=== PATIENT | female | born 1980 | race Caucasian/White ===

== ENCOUNTER 2017-07-17 18:11 | Emergency (ER) | payer MEDICAID ==
[2017-07-17] MEDS ORDERED: HYDROCODONE/APAP 7.5/325 MG TAB ONE (18:48)
--- NOTE | 2017-07-17 19:29 | RAD REPORT ---
EXAM DESCRIPTION: RAD - Ankle Left 3 View -07/17/2017 6:48 pm CLINICAL HISTORY: Left ankle pain FINDINGS: Plate and screws affix a subacute fibular fracture. The fracture has not yet healed. No dislocation is seen
--- NOTE | 2017-07-17 19:33 | RAD REPORT ---
EXAM DESCRIPTION: RAD - Foot Left 3 View - 07/17/2017 6:48 pm CLINICAL HISTORY: Left Foot pain FINDINGS: No fracture or dislocation is seen involving the left foot
--- NOTE | 2017-07-17 19:36 | ER ---
Nurse's Notes [facility] Name: Yuly Julien Age: 36 yrs Sex: Female : 1980 Arrival Date: 07/17/2017 Time: 18:12 Bed 28 Private MD: Diagnosis: Sprain of ankle Presentation: 07/17 18:17 Presenting complaint: Patient states: I had sx on my left ankle May 29 and today la1 I twisted my ankle and felt a pop and since then I have not been able to bare weight at all. Transition of care: patient was not received from another setting of care. Onset of symptoms was July 17, 2017. Care prior to arrival: None. 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 - Social history:: Smoking status: Patient/guardian denies using tobacco. Screenin:07 Abuse screen: Denies threats or abuse. Denies injuries from another. Nutritional lk1 screening: No deficits noted. Tuberculosis screening: No symptoms or risk factors identified. Fall Risk Total Velázquez Fall Scale indicates High Risk Score (45 or more points). Fall prevention measures have been instituted. Side Rails Up X 2 Placed Close to Nursing Station Frequent Obs/Assessments Occuring Family Present and informed to notify staff if the need to leave the bedside As available patient and family educated on Fall Prevention Program and Strategies. Assessment: 19:00 General: Appears uncomfortable, Behavior is calm, cooperative, appropriate for age. lk1 Pain: Complains of pain in left lateral ankle Pain currently is 8 out of 10 on a pain scale. Musculoskeletal: Circulation, motion, and sensation intact. Capillary refill is brisk, Swelling present in left lateral ankle. Vital Signs: 18:18 BP 106 / 71; Pulse 68; Resp 19; Temp 97.0(TE); Pulse Ox 100% on R/A; Weight 117.93 kg; la1 Height 5 ft. 10 in. (177.80 cm); 19:45 BP 104 / 68; Pulse 72; Resp 18; Pulse Ox 100% ; Pain 6/10; lk1 18:18 Body Mass Index 37.31 (117.93 kg, 177.80 cm) ak1 ED Course: 18:12 Patient arrived in ED. as 18:17 Triage completed. la1 18:18 Angelique Kirkpatrick NP is PHCP. rh1 18:18 Davon Lo MD is Attending Physician. 1 18:18 Arm band placed on right wrist. la1 18:27 Samira Gonsalves, RN is Primary Nurse. lexus 18:41 X-ray completed. Portable x-ray completed in exam room. Patient tolerated procedure kc2 well. 19:36 Tarun Manjarrez MD is Referral Physician. 1 20:09 Patient has correct armband on for positive identification. Bed in low position. Call lk1 light in reach. Side rails up X 1. Adult w/ patient. 20:09 No provider procedures requiring assistance completed. Patient did not have IV access lk1 during this emergency room visit. Administered Medications: 18:31 Drug: [place] (7.5 mg-325 mg) 1 tabs Route: PO; tw2 19:20 Follow up: Response: No adverse reaction; Pain is decreased lk1 Outcome: 19:36 Discharge ordered by MD. [facility] 20:10 Discharged to home via wheelchair, with family. lk1 20:10 Condition: good 20:10 Discharge instructions given to patient, significant other, Instructed on discharge instructions, follow up and referral plans. medication usage, safety practices, Demonstrated understanding of instructions, follow-up care, medications. 20:13 Patient left the ED. lk1 Signatures: Samira Gonsalves, Nikki Hope RN, Lee RN RN ak1 Angelique Kirkpatrick, CARL LEGAL SERVICES MANAGER 1 Madelaine Tejada RN RN lk1 Kala Garcia RN RN tw2 Roxanna Marquez kc2
--- NOTE | 2017-07-17 19:36 | EDPHYS ---
Physician Documentation [facility] Name: Yuly Julien Age: 36 yrs Sex: Female : 1980 Arrival Date: 07/17/2017 Time: 18:12 Bed 28 Private MD: ED Physician Davon Lo HPI: 07/17 18:19 This 36 yrs old Female presents to ER via Wheelchair with complaints of Ankle rh1 Injury. 18:19 The patient presents with pain, that is acute, swelling, tenderness. The complaints rh1 affect the left ankle. Onset: The symptoms/episode began/occurred just prior to arrival. Context: The problem was sustained at home, resulted from a mis-step by the patient, twisting The patient is unable to bear weight. The patient is not able to ambulate. Associated signs and symptoms: Pertinent positives: swelling, Pertinent negatives: fever, numbness, tingling, vomiting, weakness. Modifying factors: The symptoms are alleviated by nothing, the symptoms are aggravated by weight bearing, movement. Severity of symptoms: At their worst the symptoms were moderate, in the emergency department the symptoms are unchanged. The patient has not experienced similar symptoms in the past. The patient has not recently seen a physician. Pt. reports she was standing doing laundry at home, and stepped wrong in boot, and heard pop at left ankle, and has been unable to bear weight. Surgery at left distal fibula 218. Denies any paresthesias.. 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 - Social history:: Smoking status: Patient/guardian denies using tobacco. ROS: 18:19 Constitutional: Negative for fever, chills rh1 18:19 MS/extremity: Positive for decreased range of motion, pain, swelling, tenderness, Negative for deformity, paresthesias. 18:19 Skin: Negative for abscesses, cellulitis. 18:19 Neuro: Negative for numbness, tingling, weakness. 18:19 All other systems are negative. Exam: 18:19 Constitutional: This is a well developed, well nourished patient who is awake, alert, rh1 and in no acute distress. Head/Face: Normocephalic, atraumatic. Neck: Trachea midline, and no cervical lymphadenopathy. Supple, full range of motion without nuchal rigidity. No Meningismus. Cardiovascular: Regular rate and rhythm with a normal S1 and S2. No gallops, murmurs, or rubs. No JVD. No pulse deficits. Respiratory: Lungs have equal breath sounds bilaterally, clear to auscultation. No rales, rhonchi or wheezes noted. No increased work of breathing. Abdomen/GI: Soft, non-tender, with normal bowel sounds. No distension. No guarding or rebound. No evidence of tenderness throughout. Back: No spinal tenderness. No costovertebral tenderness. Full range of motion. Skin: Warm, dry with normal turgor. Normal color with no rashes, no lesions, and no evidence of cellulitis. 18:19 Musculoskeletal/extremity: Extremities: grossly normal except: noted in the left lateral ankle: pain, swelling, tenderness, with well healed surgical incision, There is no evidence of deformity, erythema, ROM: full active range of motion, in the right arm, left arm, right leg, left hip and left knee, limited active range of motion, in the left lateral ankle, limited passive range of motion, in the left lateral ankle, limited active range of motion due to pain, in the left lateral ankle, limited passive range of motion due to pain, in the left lateral ankle, Pulses: noted to be 2+ in the right posterior tibial artery, right dorsalis pedis artery, left posterior tibial artery and left dorsalis pedis artery, Perfusion: the extremity is pink, warm, with brisk capillary refill, toes at left foot, Sensation intact. 18:19 Neuro: Orientation: is normal, to person, place \T\ time. Mentation: is normal, lucid, able to follow commands, Motor: is normal, moves all fours, Sensation: is normal, no obvious gross deficits, numbness, is not appreciated, tingling, is not appreciated. Vital Signs: 18:18 BP 106 / 71; Pulse 68; Resp 19; Temp 97.0(TE); Pulse Ox 100% on R/A; Weight 117.93 kg; la1 Height 5 ft. 10 in. (177.80 cm); 19:45 BP 104 / 68; Pulse 72; Resp 18; Pulse Ox 100% ; Pain 6/10; lk1 18:18 Body Mass Index 37.31 (117.93 kg, 177.80 cm) la1 MDM: 18:19 Patient medically screened. rh1 19:35 Data reviewed: vital signs, nurses notes, radiologic studies, plain films, and as a rh1 result, I will discharge patient. Data interpreted: Pulse oximetry: on room air is 100 %. Interpretation: normal. Counseling: I had a detailed discussion with the patient and/or guardian regarding: the historical points, exam findings, and any diagnostic results supporting the discharge/admit diagnosis, radiology results, the need for outpatient follow up, a orthopedic surgeon, to return to the emergency department if symptoms worsen or persist or if there are any questions or concerns that arise at home. 07/17 18:26 Order name: Ankle Left 3 View XRAY 1 07/17 18:26 Order name: Foot Left 3 View XRAY [facility] 07/17 19:30 Order name: RAD; Complete Time: 19:35 EDMS 07/17 19:34 Order name: RAD; Complete Time: 19:35 EDMS Administered Medications: 18:31 Drug: [place] (7.5 mg-325 mg) 1 tabs Route: PO; tw2 19:20 Follow up: Response: No adverse reaction; Pain is decreased lk1 Disposition: 07/17/17 19:36 Discharged to Home. Impression: Sprain of ankle. - Condition is Stable. - Discharge Instructions: Ankle Sprain, Cast or Splint Care, Crutch Use. - Medication Reconciliation Form, Thank You Letter, Antibiotic Education, Prescription Opioid Use form. - Follow up: Tarun Manjarrez MD; When: 1 - 2 days; Reason: Recheck today's complaints, Continuance of care, Re-evaluation by your physician. Follow up: Emergency Department; When: As needed; Reason: Fever > 102 F, If symptoms return, Trouble breathing, Worsening of condition. - Problem is new. - Symptoms have improved. Addendum: 07/21/2017 14:33 Co-signature as Attending Physician, Davon Lo MD. r n Signatures: Dispatcher [employer] EDMS Davon Lo MD MD rn Attema, Lee, RN RN la1 Angelique Kirkpatrick NP PROJECT DEVELOPMENT ENGINEER 1 Madelaine Tejada, RN RN lk1 Kala Garcia, RN RN tw2
[2017-07-17 20:23] VITALS: TEMP 97; O2SAT 100
[2017-07-17 20:25] VITALS: BP 104/68
== END 2017-07-17 20:13 | disposition home or self-care (01) ==
LOC: ER 18:11
DX: S93.402A Sprain of unspecified ligament of left ankle, initial encounter (principal); X50.1XXA Overexertion from prolonged static or awkward postures, initial encounter; Y93.89 Activity, other specified; Y92.009 Unspecified place in unspecified non-institutional (private) residence as the place of occurrence of the external cause; I10 Essential (primary) hypertension; Z88.0 Allergy status to penicillin; Z88.5 Allergy status to narcotic agent; Z91.048 Other nonmedicinal substance allergy status
CPT/HCPCS: 99283

== ENCOUNTER 2018-03-31 19:29 | Emergency (ER) | payer MEDICAID ==
--- OUTSIDE RECORDS SUMMARY | 2018-03-31 19:32 | XMS REPORT ---
:1980 Author Organization [employer] Care Team Providers Name Role Phone Tarun Manjarrez Provider Role Unavailable Allergies, Adverse Reactions, Alerts Substance Reaction Event Type penicillin Info Not Available Drug Allergy MORPHINE Info Not Available Drug Allergy Problems Problem Type Condition Code Onset Dates Condition Status Assessment Pain in left ankle and joints of M25.572 Active left foot Assessment Closed displaced fracture of S82.62XG Active lateral malleolus of left fibula with delayed healing Medications Medication Code System Code Instructions Start Date End Date Status Dosage Clindamycin HCl NDC 0 Active not defined Results No Known Results Summary Purpose eClinical[employer] Submission
[2018-03-31] MEDS ORDERED: IBUPROFEN 400 MG TAB ONE (20:37)
--- NOTE | 2018-03-31 21:02 | RAD REPORT ---
EXAM DESCRIPTION: RAD - Knee Left 3 View - 03/31/2018 8:46 pm CLINICAL HISTORY: Left knee pain FINDINGS: No fracture or dislocation is seen.
--- NOTE | 2018-03-31 21:30 | RAD REPORT ---
EXAM DESCRIPTION: RAD - Ankle Left 3 View -03/31/2018 8:46 pm CLINICAL HISTORY: Left ankle pain status post injury FINDINGS: Plate and screws affix a fibular fracture. The fracture does not appear completely healed . No acute fracture or dislocation seen
--- NOTE | 2018-03-31 21:32 | EDPHYS ---
Physician Documentation [facility] Name: Yuly Julien Age: 37 yrs Sex: Female : 1980 Arrival Date: 03/31/2018 Time: 19:31 Bed 17 Private MD: ED Physician Hadley Flores HPI: 03/31 20:10 This 37 yrs old Female presents to ER via Wheelchair with complaints of Ankle cp Injury, Ankle Swelling. 20:10 The patient presents with an injury, pain, that is acute, swelling, tenderness. The cp complaints affect the left ankle. Onset: The symptoms/episode began/occurred just prior to arrival. Context: The problem was sustained outdoors, resulted from a mis-step by the patient, The mechanism of injury involved inversion of the affected ankle. The patient can partially bear weight on the affected extremity. the patient is able to ambulate, with moderate difficulty. Associated signs and symptoms: Pertinent positives: left knee pain, Pertinent negatives: calf tenderness. Modifying factors: the symptoms are aggravated by weight bearing, movement. 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 - Social history:: Smoking status: Patient uses tobacco products, denies chronic smoking, but will smoke occasionally. - Ebola Screening: : Patient negative for fever greater than or equal to 101.5 degrees Fahrenheit, and additional compatible Ebola Virus Disease symptoms Patient denies exposure to infectious person Patient denies travel to an Ebola-affected area in the 21 days before illness onset No symptoms or risks identified at this time. ROS: 20:15 Constitutional: Negative for fever, poor PO intake. cp 20:15 Eyes: Negative for injury, pain, redness, and discharge. cp 20:15 ENT: Negative for drainage from ear(s), ear pain, sore throat, difficulty swallowing, difficulty handling secretions. 20:15 Cardiovascular: Negative for chest pain. 20:15 Respiratory: Negative for cough, shortness of breath, wheezing. 20:15 Abdomen/GI: Negative for abdominal pain. 20:15 MS/extremity: Positive for pain, paresthesias, tenderness, of the left ankle, Negative for deformity. 20:15 Skin: Negative for cellulitis, rash. 20:15 All other systems are negative. Exam: 20:25 Constitutional: The patient appears in no acute distress, alert, awake, well developed, cp well nourished. 20:25 Head/Face: Normocephalic, atraumatic. cp 20:25 Eyes: Periorbital structures: appear normal, Conjunctiva: normal, no exudate, no injection, Lids and lashes: appear normal, bilaterally. 20:25 ENT: External ear(s): are unremarkable, Nose: is normal, Mouth: is normal, Posterior pharynx: is normal, airway is patent. 20:25 Chest/axilla: Inspection: normal. 20:25 Cardiovascular: Rate: normal, Rhythm: regular. 20:25 Respiratory: the patient does not display signs of respiratory distress, Respirations: normal, no use of accessory muscles, no retractions, no splinting, no tachypnea. 20:25 Abdomen/GI: Inspection: abdomen appears normal. 20:25 Musculoskeletal/extremity: Extremities: grossly normal except: noted in the left lateral ankle: swelling, tenderness, There is no evidence of deformity, noted in the left knee: pain, tenderness, no evidence of decreased ROM, deformity. 20:25 Skin: cellulitis, is not appreciated, no rash present. Vital Signs: 19:47 BP 116 / 58; Pulse 90; Resp 19; Temp 97.8; Pulse Ox 98% on R/A; Weight 73.03 kg; Height aj 5 ft. 10 in. (177.80 cm); 21:21 BP 108 / 59; Pulse 73; Resp 16; Pulse Ox 100% on R/A; aa1 19:47 Body Mass Index 23.10 (73.03 kg, 177.80 cm) Procedures: 21:35 Splinting: Splint applied to left ankle using Air Cast, applied by nurse. Examined by cp me, post splint application: neurovascular intact, Patient tolerated well. MDM: 19:51 Patient medically screened. cp 20:30 Differential diagnosis: fracture, sprain, dislocation. cp 21:30 Data reviewed: vital signs, nurses notes, radiologic studies, plain films, and as a cp result, I will discharge patient. 21:30 Test interpretation: by ED physician or midlevel provider: plain radiologic studies. cp Counseling: I had a detailed discussion with the patient and/or guardian regarding: the historical points, exam findings, and any diagnostic results supporting the discharge/admit diagnosis, radiology results, the need for outpatient follow up, a orthopedic surgeon, to return to the emergency department if symptoms worsen or persist or if there are any questions or concerns that arise at home. 03/31 20:07 Order name: XRAY Knee LEFT 3 view cp 03/31 20:07 Order name: XRAY Ankle LEFT 3 view cp 03/31 21:03 Order name: RAD; Complete Time: 21:18 EDMD 03/31 21:18 Interpretation: Report reviewed. 03/31 21:32 Order name: RAD EDMD 03/31 21:19 Order name: Aircast Ankle Splint; Complete Time: 21:39 cp Administered Medications: 20:32 Not Given (Patient Refused): Ibuprofen 800 mg PO once aa1 Disposition: 04/01 19:13 Co-signature as Attending Physician, Hadley Flores MD. Disposition: 03/31/18 21:31 Discharged to Home. Impression: Sprain of ankle - Left, Pain in knee. - Condition is Stable. - Discharge Instructions: Ankle Sprain, Knee Pain. - Prescriptions for Tramadol 50 mg Oral Tablet - take 1 tablet by ORAL route every 8 hours as needed. no driving while taking medication; 15 tablet. - Work release form, Medication Reconciliation Form, Thank You Letter, Antibiotic Education, Prescription Opioid Use form. - Follow up: Private Physician; When: 2 - 3 days; Reason: Recheck today's complaints. - Problem is new. - Symptoms have improved. Signatures: Dispatcher [employer] EDMD Ashtyn Benjamin RN RN aa1 Samira Gonsalves RN RN aj Page, Corey, PA PA cp Starr, Gregory, MD MD Corrections: (The following items were deleted from the chart) 03/31 20:28 20:07 Urine Dipstick-Ancillary ordered. cp cp :28 20:07 Urine Test ordered. cp cp 21:39 21:19 Crutches ordered. cp aa1 21:40 21:31 03/31/2018 21:31 Discharged to Home. Impression: Sprain of ankle - Left; Pain in aa1 knee. Condition is Stable. Forms are Medication Reconciliation Form, Thank You Letter, Antibiotic Education, Prescription Opioid Use. Follow up: Private Physician; When: 2 - 3 days; Reason: Recheck today's complaints. Problem is new. Symptoms have improved. cp
--- NOTE | 2018-03-31 21:32 | ER ---
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 Transition of care: patient was not received from another setting of care. Onset of symptoms was March 31, 2018. Risk Assessment: Do you want to hurt yourself or someone else? Patient reports no desire to harm self or others. Initial Sepsis Screen: Does the patient meet any 2 criteria? No. Patient's initial sepsis screen is negative. Does the patient have a suspected source of infection? No. Patient's initial sepsis screen is negative. Care prior to arrival: None. 19:45 Method Of Arrival: Wheelchair aj 19:45 Acuity: GRACIA 3 aj Triage Assessment: 19:47 General: Appears in no apparent distress. uncomfortable, Behavior is calm, cooperative, aj appropriate for age. Pain: Complains of pain in left lateral ankle. Neuro: Level of Consciousness is awake, alert, obeys commands, Oriented to person, place, time, situation, Appropriate for age. Respiratory: Airway is patent Respiratory effort is even, unlabored, Respiratory pattern is regular, symmetrical. Derm: Skin is intact, is healthy with good turgor, Skin is pink, warm \\T\\ dry. normal. Musculoskeletal: Reports pain in left lateral ankle. 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 - Social history:: Smoking status: Patient uses tobacco products, denies chronic smoking, but will smoke occasionally. - Ebola Screening: : Patient negative for fever greater than or equal to 101.5 degrees Fahrenheit, and additional compatible Ebola Virus Disease symptoms Patient denies exposure to infectious person Patient denies travel to an Ebola-affected area in the 21 days before illness onset No symptoms or risks identified at this time. Screenin:55 Abuse screen: Denies threats or abuse. Denies injuries from another. Nutritional aa1 screening: No deficits noted. Tuberculosis screening: No symptoms or risk factors identified. Fall Risk Gait- Impaired (20 pts.). Assessment: 19:55 General: Appears in no apparent distress. comfortable, Behavior is calm, cooperative, aa1 appropriate for age. Pain: Complains of pain in left lateral ankle Is continuous, Aggravated by weight bearing. Neuro: Level of Consciousness is awake, alert, obeys commands, Oriented to person, place, time, situation, Moves all extremities. Respiratory: Airway is patent Respiratory effort is even, unlabored, Respiratory pattern is regular, symmetrical. GI: No signs and/or symptoms were reported involving the gastrointestinal system. : No signs and/or symptoms were reported regarding the genitourinary system. EENT: No signs and/or symptoms were reported regarding the EENT system. Derm: Skin is intact, is healthy with good turgor, Skin is pink, warm \\T\\ dry. Musculoskeletal: Circulation, motion, and sensation intact. Capillary refill < 3 seconds, Range of motion: limited in left ankle Swelling present in left lateral ankle. 20:43 Reassessment: Patient appears in no apparent distress at this time. Patient and/or aa1 family updated on plan of care and expected duration. Pain level reassessed. Patient is alert, oriented x 3, equal unlabored respirations, skin warm/dry/pink. Awaiting x-ray results. 21:21 Reassessment: Patient appears in no apparent distress at this time. Patient and/or aa1 family updated on plan of care and expected duration. Pain level reassessed. Patient is alert, oriented x 3, equal unlabored respirations, skin warm/dry/pink. Awaiting d/c orders from provider. 21:35 Reassessment: Patient appears in no apparent distress at this time. Patient is alert, aa1 oriented x 3, equal unlabored respirations, skin warm/dry/pink. Discussed d/c \\T\\ f/u instructions with pt; denies questions or concerns at this time. Vital Signs: 19:47 BP 116 / 58; Pulse 90; Resp 19; Temp 97.8; Pulse Ox 98% on R/A; Weight 73.03 kg; Height aj 5 ft. 10 in. (177.80 cm); 21:21 BP 108 / 59; Pulse 73; Resp 16; Pulse Ox 100% on R/A; aa1 19:47 Body Mass Index 23.10 (73.03 kg, 177.80 cm) ED Course: 19:31 Patient arrived in ED. al2 19:46 Triage completed. aj 19:47 Arm band placed on left wrist. Patient placed in an exam room. aj 19:49 Sanya Roberson PA is PHCP. cp 19:49 Hadley Flores MD is Attending Physician. cp 19:55 Patient has correct armband on for positive identification. Bed in low position. Call aa1 light in reach. 20:26 Ashtyn Benjamin, RN is Primary Nurse. aa1 21:35 No provider procedures requiring assistance completed. Patient did not have IV access aa1 during this emergency room visit. Air stirrup applied to left ankle. Administered Medications: 20:32 Not Given (Patient Refused): Ibuprofen 800 mg PO once aa1 Outcome: 21:31 Discharge ordered by MD. cp 21:35 Discharged to home via wheelchair, with family. aa1 21:35 Condition: good 21:35 Discharge instructions given to patient, Instructed on discharge instructions, follow up and referral plans. medication usage, Demonstrated understanding of instructions, follow-up care, medications. 21:40 Patient left the ED. aa1 Signatures: Ashtyn Benjamin, RN RN aa1 Samira Gonsalves RN RN Sanya Fernando PA PA cp Love, Angelica al2
[2018-03-31 22:38] VITALS: TEMP 97.8
[2018-03-31 22:40] VITALS: BP 108/59; O2SAT 100
== END 2018-03-31 21:40 | disposition home or self-care (01) ==
LOC: ER 19:29
DX: S93.402A Sprain of unspecified ligament of left ankle, initial encounter (principal); M25.562 Pain in left knee; X58.XXXA Exposure to other specified factors, initial encounter; Z72.0 Tobacco use; F32.9 Major depressive disorder, single episode, unspecified; Z79.899 Other long term (current) drug therapy
CPT/HCPCS: 99283

== ENCOUNTER 2019-01-08 14:05 | Emergency (ER) | payer MEDICAID ==
--- OUTSIDE RECORDS SUMMARY | 2019-01-08 14:07 | XMS REPORT ---
:1980 [facility] Address [address] [place] [address] Care Team Providers Name Role Phone Unavailable Unavailable Unavailable Payers Payer Name Policy Type Policy Number Effective Date Expiration Date Problems This patient has no known problems. Allergies, Adverse Reactions, Alerts Allergy Name Allergy Status Severity Reaction(s) Onset Inactive Treating Comments Type Date Date Clinician Penicillins DA Active CA 2018-04 00:00:0 0 morphine DA Active CA 2018-04 00:00:0 0 adhesive tape DA Active CA 2018-04 00:00:0 0 Penicillins DA Active CA 2018-04 00:00:0 0 morphine DA Active CA 2018-04 00:00:0 0 adhesive tape DA Active CA 2018-04 00:00:0 0 Medications This patient has no known medications. Results Test Description Test Time Test Comments Text Results Atomic Results Result Comments - [facility] UNI/LTD 2018-07-14 18:38:00 Patient Name: CAPRICE ARGUETA Unit No: [id number] EXAMS: CPT CODE: [id number] [facility] UNI/LTD 45431 FINDINGS: Left lower extremity grayscale and Doppler venous ultrasound demonstrates normal flow and luminal compressibility without evidence of intraluminal thrombus. IMPRESSION: No evidence of DVT within deep venous structures of the left lower extremity. at 1838 Reported and signed by: Eusbeio Kirkpatrick M.D. CC: Juarez Stoll MD Technologist: MORGAN ANDERSEN RDMS, RVT Transcribed D/ (1838) [facility] NAME: CAPRICE ARGUETA [address] [facility] PHYS: JMEVONNE Juarez Caban : 1980 AGE: 37 SEX: F [place] [address] LOC: Y.RAD PHONE #: [phone] EXAM DATE: 07/14/2018 STATUS: REG CLI FAX #: [phone] RAD #: D/C DT PAGE 1 Signed Report Patient Name: CAPRICE ARGUETA Unit No: [id number] EXAMS: CPT CODE: [id number] [facility] UNI/LTD 19238 <Continued> Orig Print D/T: S: 07/14/2018 (184) [facility] NAME: CAPRICE ARGUETA [address] [facility] PHYS: Juarez Bowen : 1980 AGE: 37 SEX: F [place] [address] LOC: Y.RAD PHONE #: [phone] EXAM DATE: 07/14/2018 STATUS: REG CLI FAX #: [phone] RAD #: D/C DT PAGE 2 Signed Report
[2019-01-08] MEDS ORDERED: HYDROCODONE/APAP 10/325 TAB ONE (15:02)
[2019-01-08] MEDS ORDERED: ONDANSETRON 4 MG (ODT) TAB ONE (15:02)
--- NOTE | 2019-01-08 16:08 | RAD REPORT ---
EXAM DESCRIPTION: RAD - Elbow Left 2 View - 01/08/2019 3:55 pm CLINICAL HISTORY: Left elbow pain status injury FINDINGS: Limited two view series obtained No fracture or dislocation seen
--- NOTE | 2019-01-08 16:08 | RAD REPORT ---
EXAM DESCRIPTION: RAD - Forearm Left - 01/08/2019 3:54 pm CLINICAL HISTORY: Left forearm pain status post injury FINDINGS: No fracture is seen
--- NOTE | 2019-01-08 16:11 | RAD REPORT ---
EXAM DESCRIPTION: RAD -Hand Left 3 View - 01/08/2019 3:55 pm CLINICAL HISTORY: Left hand pain status post injury FINDINGS: No fracture or dislocation is seen.
--- NOTE | 2019-01-08 17:00 | ER ---
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 Transition of care: patient was not received from another setting of care. Onset of symptoms was January 08, 2019. Risk Assessment: Do you want to hurt yourself or someone else? Patient reports no desire to harm self or others. Initial Sepsis Screen: Does the patient meet any 2 criteria? No. Patient's initial sepsis screen is negative. Does the patient have a suspected source of infection? No. Patient's initial sepsis screen is negative. Care prior to arrival: None. 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 - Social history:: Smoking status: Patient/guardian denies using tobacco. - Ebola Screening: : Patient negative for fever greater than or equal to 101.5 degrees Fahrenheit, and additional compatible Ebola Virus Disease symptoms Patient denies exposure to infectious person Patient denies travel to an Ebola-affected area in the 21 days before illness onset No symptoms or risks identified at this time. Screenin:41 Abuse screen: Denies threats or abuse. Denies injuries from another. Nutritional sv screening: No deficits noted. Tuberculosis screening: No symptoms or risk factors identified. Fall Risk None identified. Assessment: 14:39 General: Appears in no apparent distress. uncomfortable, well groomed, well developed, sv Behavior is calm, cooperative, appropriate for age. Pain: Complains of pain in left arm Pain currently is 7 out of 10 on a pain scale. Quality of pain is described as tender, throbbing, Is continuous, Aggravated by repositioning, Noted to be grimacing, guarding. Neuro: Level of Consciousness is awake, alert, obeys commands, Oriented to person, place, time, situation, Moves all extremities. Full function Gait is steady, Reports numbness in left middle finger, left ring finger and left little finger. Cardiovascular: Capillary refill < 3 seconds is brisk in bilateral fingers Patient's skin is warm and dry. Pulses are 3+ in right radial artery and left radial artery. Respiratory: Respiratory effort is even, unlabored, Respiratory pattern is regular, symmetrical. Derm: Skin is pink, warm \T\ dry. Musculoskeletal: Range of motion: limited in left wrist Swelling present in left arm. 15:21 Reassessment: Patient appears in no apparent distress at this time. Patient and/or sv family updated on plan of care and expected duration. Pain level reassessed. Patient is alert, oriented x 3, equal unlabored respirations, skin warm/dry/pink. GI: Patient currently denies nausea. 15:37 Reassessment: Xray at the bedside. sv 17:19 Reassessment: Patient appears in no apparent distress at this time. Patient and/or sv family updated on plan of care and expected duration. Pain level reassessed. Patient is alert, oriented x 3, equal unlabored respirations, skin warm/dry/pink. Vital Signs: 14:22 BP 132 / 90; Pulse 89; Resp 17; Temp 98.4; Pulse Ox 98% on R/A; Pain 7/10; sg ED Course: 14:07 Patient arrived in ED. rg4 14:22 Triage completed. sg 14:22 Arm band placed on. sg 14:34 Cheli Moya, BRETT is Primary Nurse. sv 14:41 Patient has correct armband on for positive identification. Bed in low position. Call sv light in reach. Adult w/ patient. Door closed. Warm blanket given. Pillow given. Head of bed elevated. Elevated left arm. 14:43 Chriss Pereyra PA is PHCP. [facility] 14:43 Justyn Berry MD is Attending Physician. [facility] 15:41 Awaiting radiology results. sv 15:41 X-ray(s) taken. sv 15:54 Hand Left 3 View XRAY In Process Unspecified. EDMS 15:54 Forearm Left XRAY In Process Unspecified. EDMS 15:54 Elbow Left 2 View XRAY In Process Unspecified. EDMS 16:52 Celestino wrap to left elbow and left wrist Orthoglass splint: Sugar tong splint applied on jp3 left arm. Sling applied to left arm. 16:57 Thierry Spann MD is Referral Physician. jmm 17:19 No provider procedures requiring assistance completed. Patient did not have IV access sv during this emergency room visit. Administered Medications: 15:02 Drug: Zofran 4 mg Route: PO; sv 15:21 Follow up: Response: No adverse reaction; Nausea is decreased sv 15:21 Drug: [place] 10 mg-325 mg 1 tabs Route: PO; sv 16:15 Follow up: Response: No adverse reaction; Pain is decreased sv Outcome: 16:58 Discharge ordered by MD. jmm 17:19 Discharged to home ambulatory, with family. sv 17:19 Condition: stable 17:19 Discharge instructions given to patient, Instructed on discharge instructions, follow up and referral plans. splint care Demonstrated understanding of instructions, follow-up care, splint care. 17:20 Patient left the ED. sv Signatures: Dispatcher [employer] Cheli Whitfield RN RN sv Gay, Steven, RN RBETT Chriss Pereyra PA PA jmm Garcia, Rubi rg4 Erik Barry jp3 Corrections: (The following items were deleted from the chart) 15:32 14:39 Neuro: Level of Consciousness is awake, alert, obeys commands, Oriented to sv person, place, time, situation, Moves all extremities. Full function Gait is steady, sv
--- NOTE | 2019-01-08 17:01 | EDPHYS ---
Physician Documentation [facility] Name: Yuly Julien Age: 38 yrs Sex: Female : 1980 Arrival Date: 01/08/2019 Time: 14:07 Bed 7 Private MD: ED Physician Justyn Berry HPI: 01/08 14:56 This 38 yrs old Female presents to ER via Ambulatory with complaints of Arm jmm Injury. 14:56 The patient or guardian complains of injury, pain, that is acute. Onset: The jmm symptoms/episode began/occurred acutely, just prior to arrival. This is a 38 year old female with a history of depression, hlp, htn that presents to the ED with complaints of left forearm pain after a horse kicked her. This occurred when attempting to push her daughter out of the way. patient denies other injury. . 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 - Social history:: Smoking status: Patient/guardian denies using tobacco. - Ebola Screening: : Patient negative for fever greater than or equal to 101.5 degrees Fahrenheit, and additional compatible Ebola Virus Disease symptoms Patient denies exposure to infectious person Patient denies travel to an Ebola-affected area in the 21 days before illness onset No symptoms or risks identified at this time. ROS: 14:56 Constitutional: Negative for fever, chills, and weight loss, Cardiovascular: Negative jmm for chest pain, palpitations, and edema, Respiratory: Negative for shortness of breath, cough, wheezing, and pleuritic chest pain. 14:56 MS/extremity: Positive for injury or acute deformity. 14:56 All other systems are negative. Exam: 14:56 Constitutional: This is a well developed, well nourished patient who is awake, alert, jmm and in no acute distress. Head/Face: atraumatic. Eyes: EOMI, no conjunctival erythema appreciated ENT: Moist Mucus Membranes Neck: Trachea midline, Supple Chest/axilla: Normal chest wall appearance and motion. Cardiovascular: Regular rate and rhythm. No edema appreciated Respiratory: Normal respirations, no respiratory distress appreciated Abdomen/GI: Non distended, soft Skin: General appearance color normal 14:56 Musculoskeletal/extremity: ROM: intact in all extremities, left forearm diffusely ttp, left hand is tender on the ulnar side, no obvious deformity is appreciated, < 2 sec distal cap refill. . 14:56 Skin: Appearance: Color: normal in color. 14:56 Neuro: Orientation: is normal, Mentation: is normal, Memory: is normal. 14:56 Psych: Behavior/mood is pleasant, cooperative. Vital Signs: 14:22 BP 132 / 90; Pulse 89; Resp 17; Temp 98.4; Pulse Ox 98% on R/A; Pain 7/10; sg Procedures: 16:55 Splinting: Splint applied to left arm using sling, sugar tong. applied by tech. tianna Examined by me, post splint application: neurovascular intact, 2+ distal pulses palpable, brisk capillary refill noted, Patient tolerated well. MDM: 14:56 Patient medically screened. tianna 16:55 Data reviewed: vital signs, nurses notes. Counseling: I had a detailed discussion with tianna the patient and/or guardian regarding: the historical points, exam findings, and any diagnostic results supporting the discharge/admit diagnosis, radiology results, the need for outpatient follow up, to return to the emergency department if symptoms worsen or persist or if there are any questions or concerns that arise at home. ED course: Imaging studies negative. Patient advised to follow up with ortho for reevaluation. Patient is otherwise given strict return precautions. Patient understood and agrees with the plan of care. . 01/08 14:39 Order name: Hand Left 3 View XRAY; Complete Time: 16:26 sv 01/08 14:39 Order name: Forearm Left XRAY; Complete Time: 16:13 sv 01/08 14:39 Order name: Elbow Left 2 View XRAY; Complete Time: 16:13 sv 01/08 16:23 Order name: Sugar Tong Forearm Splint; Complete Time: 16:53 [facility] 01/08 16:23 Order name: Sling; Complete Time: 16:53 [facility] Administered Medications: 15:02 Drug: Zofran 4 mg Route: PO; sv 15:21 Follow up: Response: No adverse reaction; Nausea is decreased sv 15:21 Drug: [place] 10 mg-325 mg 1 tabs Route: PO; sv 16:15 Follow up: Response: No adverse reaction; Pain is decreased sv Disposition: 01/08/19 16:58 Discharged to Home. Impression: Contusion of left forearm. - Condition is Stable. - Discharge Instructions: Contusion, Hand Contusion. - Prescriptions for Ibuprofen 800 mg Oral Tablet - take 1 tablet by ORAL route every 8 hours As needed take with food; 30 tablet. - Work release form, Medication Reconciliation Form, Thank You Letter, Antibiotic Education, Prescription Opioid Use form. - Follow up: Thierry Spann MD; When: 2 - 3 days; Reason: Recheck today's complaints, Continuance of care, Re-evaluation by your physician. Addendum: 01/10/2019 09:54 Co-signature as Attending Physician, Justyn Berry MD I agree with the assessment and k dr plan of care. Signatures: Dispatcher [employer] EDCheli Gold RN RN sv Gay, Steven, RN RN Justyn Berry MD MD [facility] Chriss Pereyra PA PA jmm Corrections: (The following items were deleted from the chart) 01/08 17:20 16:58 01/08/2019 16:58 Discharged to Home. Impression: Contusion of left forearm. sv Condition is Stable. Forms are Medication Reconciliation Form, Thank You Letter, Antibiotic Education, Prescription Opioid Use. Follow up: Thierry Spann; When: 2 - 3 days; Reason: Recheck today's complaints, Continuance of care, Re-evaluation by your physician. tianna
[2019-01-08 19:35] VITALS: BP 132/90; TEMP 98.4; O2SAT 98
== END 2019-01-08 17:20 | disposition home or self-care (01) ==
LOC: ER 14:05
DX: S50.12XA Contusion of left forearm, initial encounter (principal); W55.12XA Struck by horse, initial encounter; Y93.9 Activity, unspecified; Y92.9 Unspecified place or not applicable; I10 Essential (primary) hypertension; Z88.0 Allergy status to penicillin; Z88.5 Allergy status to narcotic agent; Z91.048 Other nonmedicinal substance allergy status
CPT/HCPCS: 99284

== ENCOUNTER 2019-01-12 08:51 | Day surgery (SDC) | payer MEDICAID ==
--- NOTE | 2019-01-11 15:00 | RAD REPORT ---
EXAM DESCRIPTION: Jazz Gunderson (2 Views)01/11/2019 2:49 pm CLINICAL HISTORY: Preop for umbilical hernia repair COMPARISON: 2018 FINDINGS: The lungs appear clear of acute infiltrate. The heart is normal size IMPRESSION: No acute abnormalities displayed
[2019-01-11 15:59] LABS: Absolute Lymphocytes (CBC) 3.2 K/uL (0.7-4.9); Basophils % 1.3 % (0-1.3); Hematocrit 40.5 % (36.0-45.0); Lymphocytes % 35.2 % (15.3-44.8); MPV 9.9 fL (7.6-11.3); RBC Red Blood Cell Count 4.67 M/uL (3.86-4.86)
[2019-01-11 16:06] LABS: Potassium 3.5 mmol/L (3.5-5.1)
[2019-01-12] MEDS: Ringers Lactate 1,000 ML IV ONE (08:51)
--- OUTSIDE RECORDS SUMMARY | 2019-01-12 08:58 | XMS REPORT ---
:1980 [facility] Address [address] [place] [address] Care Team Providers Name Role Phone Unavailable Unavailable Unavailable Payers Payer Name Policy Type Policy Number Effective Date Expiration Date Problems This patient has no known problems. Allergies, Adverse Reactions, Alerts Allergy Name Allergy Status Severity Reaction(s) Onset Inactive Treating Comments Type Date Date Clinician Penicillins DA Active OK 2018-04 00:00:0 0 morphine DA Active OK 2018-04 00:00:0 0 adhesive tape DA Active OK 2018-04 00:00:0 0 Penicillins DA Active OK 2018-04 00:00:0 0 morphine DA Active OK 2018-04 00:00:0 0 adhesive tape DA Active OK 2018-04 00:00:0 0 Medications This patient has no known medications. Results Test Description Test Time Test Comments Text Results Atomic Results Result Comments - DUP VEIN UNI/LTD 2018-07-14 18:38:00 Patient Name: CAPRICE ARGUETA Unit No: [id number] EXAMS: CPT CODE: [id number] DUP VEIN UNI/LTD 26652 FINDINGS: Left lower extremity grayscale and Doppler venous ultrasound demonstrates normal flow and luminal compressibility without evidence of intraluminal thrombus. IMPRESSION: No evidence of DVT within deep venous structures of the left lower extremity. at 1838 Reported and signed by: Eusebio Kirkpatrick M.D. CC: Juarez Stoll MD Technologist: MORGAN ANDERSEN RDMS, RVT Transcribed D/ (1838) [facility] NAME: CAPRICE ARGUETA [address] [facility] PHYS: JMEVONNE Juarez Caban : 1980 AGE: 37 SEX: F [place] [address] LOC: Y.RAD PHONE #: [phone] EXAM DATE: 07/14/2018 STATUS: REG CLI FAX #: [phone] RAD #: D/C DT PAGE 1 Signed Report Patient Name: CAPRICE ARGUETA Unit No: [id number] EXAMS: CPT CODE: [id number] [facility] UNI/LTD 08353 <Continued> Orig Print D/T: S: 07/14/2018 (184) [facility] NAME: CAPRICE ARGUETA [address] [facility] PHYS: Juarez Bowen : 1980 AGE: 37 SEX: F [place] [address] LOC: Y.RAD PHONE #: [phone] EXAM DATE: 07/14/2018 STATUS: REG CLI FAX #: [phone] RAD #: D/C DT PAGE 2 Signed Report
[2019-01-12] MEDS: CEFAZOLIN/SWI 1gm 1 GM/10 ML SYR ONE ×2 (09:48→10:20)
[2019-01-12] MEDS ORDERED: PROPOFOL 200 MG/20 ML VIAL IV ONE (09:50)
[2019-01-12] MEDS ORDERED: MIDAZOLAM HCL 2 MG/2 ML INJ ONE (09:50)
[2019-01-12] MEDS ORDERED: ROCURONIUM 50 MG/5 ML VIAL IV ONE (09:51)
[2019-01-12] MEDS ORDERED: LIDOCAINE 1% MPF 5 ML VIAL ONE (09:51)
[2019-01-12] MEDS ORDERED: FENTANYL CITR 100 MCG/2 ML ONE ×2 (09:51→10:24)
[2019-01-12] MEDS ORDERED: NEOSTIGMINE 1 MG/ML -10 ML VIAL ONE (11:02)
[2019-01-12] MEDS ORDERED: ONDANSETRON 4 MG/2 ML VIAL ONE ×2 (11:02→12:35)
[2019-01-12] MEDS ORDERED: KETOROLAC 30 MG/ML INJ ONE (11:02)
[2019-01-12] MEDS ORDERED: GLYCOPYRROLATE 0.2 MG/ML SYR ONE (11:02)
[2019-01-12] MEDS ORDERED: MEPERIDINE HCL 25 MG/0.5 ML ONE (11:14)
--- NOTE | 2019-01-12 11:30 | EKG ---
Test Date: 2019-01-11 Test Time: 14:38:50 Animal Services Officer: RIRI MEASUREMENT RESULTS: Intervals: Rate: 62 SD: 166 QRSD: 100 QT: 436 QTc: 442 [place]: P: 32 SD: 166 QRS: 64 T: 52 INTERPRETIVE STATEMENTS: Normal sinus rhythm with sinus arrhythmia Normal ECG Compared to ECG 07/06/2015 17:01:15 Ventricular premature complex(es) no longer present Electronically Signed On 01-12-19 11:29:44 CDT by Alexander Arnold
[2019-01-12] MEDS ORDERED: PROMETHAZINE 25 MG/ML VIAL ONE (11:33)
[2019-01-12] MEDS: HYDROMORPHONE HCL 2 MG/ML inj ONE ×3 (11:34→12:03)
[2019-01-12] MEDS ORDERED: HYDROCODONE/APAP 7.5/325 MG TAB ONE (13:10)
[2019-01-12 14:10] VITALS: BP 115/65; TEMP 98; O2SAT 97
--- NOTE | 2019-01-12 22:54 | OP ---
Date of Procedure: 01/12/2019 Surgeon: Abelardo Monson MD Sales Product Manager: LIZBET Andujar Preoperative Diagnosis: Recurrent ventral hernia. Postoperative Diagnosis: Recurrent ventral hernia. Procedure: Laparoscopic repair of recurrent ventral hernia. Estimated Blood Loss: Minimal. Specimen: Hernia sac. Findings: As above. Anesthesia: General. Complications: None. Disposition: Patient tolerated the procedure in stable condition, taken to Recovery in good general condition. Procedure In Detail: The patient was brought to the OR and placed in supine position. General anest hesia was begun. The patient was prepped and draped in usual sterile fashion. Marcaine 0.5% was inf iltrated locally. A 15 blade was used to make a 1 cm left upper quadrant incision. Subcutaneous tis aaliyah was divided. The fascia was identified and divided. A #1 Vicryl stay suture was placed. Perito priya cavity was entered with sharp and blunt dissection, 12 mm trocar was placed into the peritoneal cavity under direct vision. Pneumoperitoneum was established. A 5 mm trocar was placed in the left lower quadrant. Laparoscopy revealed incarcerated omentum slightly into the hernia sac which was jus t below the umbilicus slightly to the left. All omental adhesions were taken down with ligature and then approximately a 3.5 cm defect remained. Then, a 4 cm infraumbilical midline incision was made. Subcutaneous tissue was divided. Hernia sac was identified and dissected from surrounding tissue do wn to the good fascial edges, excised and sent to Pathology. Then primary closure of the hernia defe ct was done including the fascia together. Patient did have a previous mesh there, however, it was a Ventralex mesh and is common part on each side and have to see that common part in the middle. So, the 3 cm defect of the fascia was reapproximated using #1 PDS and pneumoperitoneum was re-established with an oval-shaped Bard mesh system medium in size 15 x 10 cm was placed into the peritoneal cavity and deployed in the standard fashion. Good coverage all the way around the hernia defect was accomp lished with at least 3 cm border in each directions. Then, AbsorbaTack was used to secure the mesh t o the peritoneal surface. The balloon component was removed intact. No evidence of bleeding or leighton l injury was appreciated. Subsequently, all trocars were removed under direct vision. Stay sutures were tied to each other to reapproximate the fascial defect. Subcutaneous wounds were irrigated. Bl eeding was controlled with cautery. A 3-0 chromic was used to approximate the subcutaneous tissue an d angely were used to close the skin. Sterile dressing was applied. The patient was awakened and t aken to Recovery in good general condition. Discharge Note: Patient will go to day surgery and home when stable. Disposition: Home. Condition: Stable. Discharge Instructions: Resume home medications and diet. Activity as tolerated. No heavy lifting. Remove outer dressing in 2 days. Shower. Keep wound clean and dry. Follow up in my office in 1 w [place]. Call for appointment. Tylenol No.3 one tablet p.o. q.4 p.r.n. pain. Abdominal binder as order ed. Incentive spirometry as ordered. /MODL Voice ID: [id number] Report ID: [id number]
== END 2019-01-12 13:43 | disposition home or self-care (01) ==
LOC: OR 08:51
PROVIDERS: ATTEND Surgery
PROC: 0WUF4JZ Supplement Abdominal Wall with Synthetic Substitute, Percutaneous Endoscopic Approach (ICD-10-PCS; principal; 2019-01-12 10:15)
DX: K43.2 Incisional hernia without obstruction or gangrene (principal); K21.9 Gastro-esophageal reflux disease without esophagitis; F32.9 Major depressive disorder, single episode, unspecified; F17.210 Nicotine dependence, cigarettes, uncomplicated; Z88.0 Allergy status to penicillin; Z88.6 Allergy status to analgesic agent
CPT/HCPCS: 93005; 85025; 80048; 36415; 88302; 71046; 49656; J2704; J2710; J2550; J2250; J1170; J3010 ×2; J2175; J0690; J2405 ×2

== ENCOUNTER 2020-01-06 13:47 | Emergency (ER) | payer MEDICAID ==
[2020-01-06] MEDS ORDERED: NA CHLORIDE 0.9% 2,000 ML ONE (15:27)
[2020-01-06] MEDS ORDERED: KETOROLAC 30 MG/ML INJ ONE (15:27)
[2020-01-06] MEDS ORDERED: METOCLOPRAMIDE 10 MG/2mL INJ ONE (15:27)
[2020-01-06 15:28] LABS: Absolute Lymphocytes (CBC) 2.5 K/uL (0.7-4.9); Basophils % 1.2 % (0-1.3); Hematocrit 39.1 % (36.0-45.0); Lymphocytes % 31.1 % (15.3-44.8); MPV 9.1 fL (7.6-11.3); RBC Red Blood Cell Count 4.71 M/uL (3.86-4.86)
[2020-01-06 15:45] LABS: ALT/SGPT 21 U/L (12-78); AST/SGOT 15 U/L (15-37); Albumin 3.6 g/dL (3.4-5.0); Alkaline Phosphatase 96 U/L (45-117); BUN Blood Urea Nitrogen 11 mg/dL (7-18); Bicarbonate 21 mmol/L (21-32); Bilirubin Direct 0.1 mg/dL (0-0.2); Bilirubin Total 0.4 mg/dL (0.2-1.0); Glucose Level 96 mg/dL (74-106); Lipase 96 U/L (73-393); Potassium 3.7 mmol/L (3.5-5.1); Protein, Total 6.8 g/dL (6.4-8.2); Sodium Level 144 mmol/L (136-145)
--- NOTE | 2020-01-06 16:02 | ER ---
Nurse's Notes [facility] Name: Yuly Julien Age: 39 yrs Sex: Female : 1980 Arrival Date: 01/06/2020 Time: 13:49 Bed 15 Private MD: Diagnosis: Dehydration Presentation: 01/05 13:52 Chief complaint: Patient states: "I passed out yesterday while at work. I work at the [employer] and it was really hot. they said when I got home from work yesterday I was really confused. today my head is hurting and I'm hurting everywhere and I threw up again.". Coronavirus screen: At this time, the client does not indicate any symptoms associated with coronavirus-19. Ebola Screen: Patient negative for fever greater than or equal to 101.5 degrees Fahrenheit, and additional compatible Ebola Virus Disease symptoms. Initial Sepsis Screen: Does the patient meet any 2 criteria? No. Patient's initial sepsis screen is negative. Does the patient have a suspected source of infection? No. Patient's initial sepsis screen is negative. Risk Assessment: Do you want to hurt yourself or someone else? Patient reports no desire to harm self or others. Onset of symptoms was January 06, 2020. 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 - Social history:: Smoking status: Patient reports the use of cigarette tobacco products, denies chronic smoking, but will smoke occasionally. - Family history:: not pertinent. Screenin:28 Abuse screen: Denies threats or abuse. Nutritional screening: No deficits noted. ll1 Tuberculosis screening: No symptoms or risk factors identified. Fall Risk IV access (20 points). Gait- Weak (10 pts.). Total Velázquez Fall Scale indicates Low Risk Score (25-44 pts). Fall prevention measures have been instituted. Side Rails Up X 2 Frequent Obs/Assesments occuring As available Patient and Family Educated on Fall Prevention Program and strategies. Assessment: 15:26 General: Appears uncomfortable, Behavior is calm, cooperative. Pain: Complains of pain ll1 in head Pain currently is 9 out of 10 on a pain scale. Quality of pain is described as aching, Pain began 1 day ago. Is intermittent, episodic. 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 Full function Gait is steady, Speech is normal, Facial symmetry appears normal, Pupils are PERRLA, Reports dizziness, since yesterday headache in entire a syncopal episode. Cardiovascular: No deficits noted. Respiratory: No deficits noted. GI: Abdomen is flat, Bowel sounds present X 4 quads. Abd is soft and non tender X 4 quads. Reports intolerance of fluids, intolerance of food, nausea, vomiting. 16:30 Reassessment: Patient and/or family updated on plan of care and expected duration. Pain ll1 level reassessed. Patient is alert, oriented x 3, equal unlabored respirations, skin warm/dry/pink. No further N/V. Feels better. Vital Signs: 13:58 BP 109 / 79; Pulse 75; Resp 17 S; Temp 97.8(TE); Pulse Ox 99% on R/A; Weight 116.57 kg jd3 (R); Height 5 ft. 10 in. (177.80 cm) (R); Pain 0/10; 15:15 BP 98 / 59; Pulse 60; Resp 16; Pulse Ox 98% ; ll1 16:29 BP 102 / 62; Pulse 59; Resp 17; Pulse Ox 100% ; Pain 2/10; ll1 13:58 Body Mass Index 36.88 (116.57 kg, 177.80 cm) jd3 ED Course: 13:49 Patient arrived in ED. ds1 13:55 Triage completed. jd3 13:59 Arm band placed on. jd3 14:28 Fartun Faria, RN is Primary Nurse. ll1 14:31 Ansley Estevez MD is Attending Physician. ma2 15:16 Bed in low position. Call light in reach. Side rails up X 1. Verbal reassurance given. jp3 Pulse ox on. NIBP on. 15:16 Initial lab(s) drawn, by me, sent to lab. Inserted saline lock: 20 gauge in right jp3 antecubital area, using aseptic technique. Blood collected. Patient maintains SpO2 saturation greater than 95% on room air. 16:38 No provider procedures requiring assistance completed. IV discontinued, intact, ll1 bleeding controlled, No redness/swelling at site. Pressure dressing applied. Administered Medications: 15:25 Drug: NS 0.9% 2000 ml Route: IV; Rate: 1 bolus; Site: right antecubital; 1 16:39 Follow up: Response: No adverse reaction; RASS: Alert and Calm (0); IV Status: ll1 Completed infusion; IV Intake: 1700ml 15:26 Drug: Reglan 10 mg Route: IVP; Site: right antecubital; 1 16:29 Follow up: Response: No adverse reaction; RASS: Alert and Calm (0) ll1 16:29 Follow up: Response: No adverse reaction; RASS: Alert and Calm (0) 1 15:26 Drug: TORadol 30 mg Route: IVP; Site: right antecubital; ll1 16:39 Follow up: Response: No adverse reaction; RASS: Alert and Calm (0) 1 Intake: 16:39 IV: 1700ml; Total: 1700ml. 1 Outcome: 16:01 Discharge ordered by . ks2 16:40 Patient left the ED. 1 Signatures: Tarah Krueger ds1 Niko De Los Santos RN RN jd3 Ansley Estevez MD MD ma2 Erik Barry jp3 Fartun Faria, BRETT RN ll1
--- NOTE | 2020-01-06 16:02 | EDPHYS ---
Physician Documentation [facility] Name: Yuly Julien Age: 39 yrs Sex: Female : 1980 Arrival Date: 01/06/2020 Time: 13:49 Bed 15 Private MD: ED Physician Ansley Estevez HPI: 01/05 14:54 This 39 yrs old Female presents to ER via Ambulatory with complaints of ma2 Possible heat stroke. 14:54 Onset: The symptoms/episode began/occurred gradually, 1 day(s) ago. Severity of ma2 symptoms: At their worst the symptoms were mild in the emergency department the symptoms are unchanged. The patient has not experienced similar symptoms in the past. 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 - Social history:: Smoking status: Patient reports the use of cigarette tobacco products, denies chronic smoking, but will smoke occasionally. - Family history:: not pertinent. ROS: 14:54 Constitutional: Negative for fever, chills, and weight loss. ma2 14:54 All other systems are negative. Exam: 14:54 Constitutional: This is a well developed, well nourished patient who is awake, alert, ma2 and in no acute distress. Head/Face: Normocephalic, atraumatic. Eyes: Pupils equal round and reactive to light, extra-ocular motions intact. Lids and lashes normal. Conjunctiva and sclera are non-icteric and not injected. Cornea within normal limits. Periorbital areas with no swelling, redness, or edema. ENT: Nares patent. No nasal discharge, no septal abnormalities noted. Tympanic membranes are normal and external auditory canals are clear. Oropharynx with no redness, swelling, or masses, exudates, or evidence of obstruction, uvula midline. Mucous membranes moist. Neck: Trachea midline, no thyromegaly or masses palpated, and no cervical lymphadenopathy. Supple, full range of motion without nuchal rigidity, or vertebral point tenderness. No Meningismus. Chest/axilla: Normal chest wall appearance and motion. Nontender with no deformity. No lesions are appreciated. Cardiovascular: Regular rate and rhythm with a normal S1 and S2. No gallops, murmurs, or rubs. Normal PMI, no JVD. No pulse deficits. Respiratory: Lungs have equal breath sounds bilaterally, clear to auscultation and percussion. No rales, rhonchi or wheezes noted. No increased work of breathing, no retractions or nasal flaring. Abdomen/GI: Soft, non-tender, with normal bowel sounds. No distension or tympany. No guarding or rebound. No evidence of tenderness throughout. Skin: Warm, dry with normal turgor. Normal color with no rashes, no lesions, and no evidence of cellulitis. MS/ Extremity: Pulses equal, no cyanosis. Neurovascular intact. Full, normal range of motion. Neuro: Awake and alert, GCS 15, oriented to person, place, time, and situation. Cranial nerves II-XII grossly intact. Motor strength 5/5 in all extremities. Sensory grossly intact. Cerebellar exam normal. Normal gait. Vital Signs: 13:58 BP 109 / 79; Pulse 75; Resp 17 S; Temp 97.8(TE); Pulse Ox 99% on R/A; Weight 116.57 kg jd3 (R); Height 5 ft. 10 in. (177.80 cm) (R); Pain 0/10; 15:15 BP 98 / 59; Pulse 60; Resp 16; Pulse Ox 98% ; ll1 16:29 BP 102 / 62; Pulse 59; Resp 17; Pulse Ox 100% ; Pain 2/10; ll1 13:58 Body Mass Index 36.88 (116.57 kg, 177.80 cm) jd3 MDM: 14:31 Patient medically screened. ma2 14:54 Differential Diagnosis ua, dehydratoin rhabdomyolisis . ma2 16:00 Data reviewed: vital signs, nurses notes. Counseling: I had a detailed discussion with ma2 the patient and/or guardian regarding: the historical points, exam findings, and any diagnostic results supporting the discharge/admit diagnosis, the presence of at least one elevated blood pressure reading (>120/80) during this emergency department visit, the need for outpatient follow up. Response to treatment: the patient's symptoms have markedly improved after treatment. 01/05 14:43 Order name: Basic Metabolic Panel; Complete Time: 15:59 01/05 14:43 Order name: CBC with Diff; Complete Time: 15:59 01/05 14:43 Order name: Hepatic Function; Complete Time: 15:59 01/05 14:43 Order name: Lipase; Complete Time: 15:59 01/05 14:48 Order name: CK; Complete Time: 15:59 01/05 14:43 Order name: IV Saline Lock; Complete Time: 15:16 01/05 14:43 Order name: Labs collected and sent; Complete Time: 15:16 ma Administered Medications: 15:25 Drug: NS 0.9% 2000 ml Route: IV; Rate: 1 bolus; Site: right antecubital; 1 16:39 Follow up: Response: No adverse reaction; RASS: Alert and Calm (0); IV Status: ll1 Completed infusion; IV Intake: 1700ml 15:26 Drug: Reglan 10 mg Route: IVP; Site: right antecubital; 1 16:29 Follow up: Response: No adverse reaction; RASS: Alert and Calm (0) ll1 16:29 Follow up: Response: No adverse reaction; RASS: Alert and Calm (0) ll1 15:26 Drug: TORadol 30 mg Route: IVP; Site: right antecubital; 1 16:39 Follow up: Response: No adverse reaction; RASS: Alert and Calm (0) ll1 Disposition: 01/06/20 16:01 Discharged to Home. Impression: Dehydration. - Condition is Stable. - Discharge Instructions: Dehydration, Adult. - Prescriptions for Zofran 4 mg Oral Tablet - take 1 tablet by ORAL route every 12 hours As needed; 20 tablet. - Medication Reconciliation Form, Thank You Letter, Antibiotic Education, Prescription Opioid Use, Work release form form. - Follow up: Private Physician; When: Tomorrow; Reason: Continuance of care. Signatures: Dispatcher [employer] EDNiko Matias, RN RN jd3 Ansley Estevez MD MD ma2 Fartun Faria RN RN ll1 Corrections: (The following items were deleted from the chart) 16:39 14:43 Urine Dipstick-Ancillary ordered. herminio ll1 16:40 16:01 01/06/2020 16:01 Discharged to Home. Impression: Dehydration. Condition is ll1 Stable. Forms are Medication Reconciliation Form, Thank You Letter, Antibiotic Education, Prescription Opioid Use. Follow up: Private Physician; When: Tomorrow; Reason: Continuance of care. ma2
[2020-01-06 17:07] VITALS: TEMP 97.8
[2020-01-06 17:10] VITALS: BP 102/62; O2SAT 100
== END 2020-01-06 16:40 | disposition home or self-care (01) ==
LOC: ER 13:47
DX: E86.0 Dehydration (principal); I10 Essential (primary) hypertension; F32.9 Major depressive disorder, single episode, unspecified; F17.210 Nicotine dependence, cigarettes, uncomplicated; Z88.0 Allergy status to penicillin; Z88.5 Allergy status to narcotic agent; Z88.6 Allergy status to analgesic agent; Z91.048 Other nonmedicinal substance allergy status
CPT/HCPCS: 96361; 85025; 80048; 36415; 82550; 80076; 83690; 96375; 96374; 99284; J2765; J7030

== ENCOUNTER 2022-01-06 18:27 | Emergency (ER) | payer SELFPAY ==
--- OUTSIDE RECORDS SUMMARY | 2022-01-06 18:31 | XMS REPORT | Continuity of Care Document ---
:1980 Author Organization [facility] t Address [address] [place] [address] Care Team Providers Name Role Phone MISSAEL CORONEL Primary Care Physician Unavailable Juarez Stoll Attending Clinician Unavailable WILTON AVILES Attending Clinician Unavailable YVETTE BUCK Attending Clinician Unavailable RADIOLOGY Attending Clinician Unavailable PEARL HEADLEY Attending Clinician Unavailable Pearl Headley MD Attending Clinician Radiology Attending Clinician Unavailable JAROD JOVEL Attending Clinician Unavailable TC GEIGER Attending Clinician Unavailable Tc Silver Attending Clinician CRISTINA HASSAN Attending Clinician Unavailable JOHN BRENNER Attending Clinician Unavailable MISSAEL CORONEL Admitting Clinician Unavailable PEARL HEADLEY Admitting Clinician Unavailable Payers Payer Name Policy Type Policy Number Effective Date Expiration Date [facility] [id number] 2014 MEDICAID 00:00:00 Problems Condition Condition Condition Status Onset Resolution Last Treating Co mments Source Name Details Category Date Date Treatment Clinician Date Pleuritic Pleuritic Disease Active Uni vers chest pain chest pain 01-23 it y of 00:00: [address] Branch Obesity Obesity Disease Active 2020-0 Univers (BMI (BMI 9-29 ity of 30-39.9) 30-39.9) 00:00: Medical Branch Pain in Pain in Diagnosis Active Commo n left ankle left ankle Sp anjum and joints and joints - [facility] of left of left [facility] foot foot [facility] Closed Closed Diagnosis Active Common displaced displaced Spir it fracture fracture - [facility] of lateral of lateral St malleolus malleolus Luke s of left of left [facility] fibula fibula [facility] with with delayed delayed healing healing Allergies, Adverse Reactions, Alerts Allergy Allergy Status Severity Reaction(s) Onset Inactive Treating Comm ents Source Name Type Date Date Clinician Hydrocod Propensi Active Other - See 0 Hydrocod o Univers one ty to comments 01-09 ne/acetam ity o f adverse 00:00: inophen [place] reaction 00 (Tylenol Medica l s 3) Branch HYDROCOD DRUG Active Other-Cmnt 0 Univ ers ONE INGREDI 01-09 ity of 00:00: Medical Branch Penicill DA Active MO 2019-0 [facility] ins 05-24 [facility] 00:[facility]: [facility] [place] morphine DA Active MO 2019-0 [facility] 05-24 Woman[facility] 00:00: [facility] [place] adhesive DA Active MO 2019-0 [facility] tape 05-24 Woman's 00:00: [facility] 00 [facility] [place] Penicill DA Active MO SOB, RASHES 2019-0 [facility] ins 05-24 Woman's 00:00: [facility]osp[facility] 00 [facility] [place] morphine DA Active MO SEVERE 2019-0 [facility] MUSCLES 05-24 Woman's CRAMPS 00:00: Hospita 00 l of [place] adhesive DA Active MO TEARS SKIN, 0 [facility] tape RASHES, 05-24 Woman's BRUISING 00:00: Hospita 00 [facility] [place] Penicill DA Active MO 2019-0 [facility] ins 05-27 00:00: Orthope 00 dic Hospita l morphine DA Active MO 2018-0 [facility] 05-27 00:00: Orthope 00 dic Hospita l adhesive DA Active MO 2018-0 [facility] tape 05-27 00:00: Orthope 00 dic Hospita l Penicill DA Active MO SOB, RASHES 2018-0 [facility] ins 05-27 00:00: Orthope 00 dic Hospita l morphine DA Active MO SEVERE 2018-0 [facility] MUSCLES 05-27 [place] CRAMPS 00:00: Orthope 00 dic Hospita l adhesive DA Active MO TEARS SKIN, 2018- [facility] tape RASHES, 05-27 [place] BRUISING 00:00: Orthope 00 dic Hospita l Penicill DA Active MO 2018- [facility] ins -18 [place] 00:00: Orthope 00 dic Hospita l morphine DA Active MO 2018-0 [facility] -18 [place] 00:00: Orthope 00 dic Hospita l adhesive DA Active MO 2018- [facility] tape 05-14 [place] 00:00: Orthope 00 dic Hospita l Morphine Drug Active Other - See Severe Uni vers Allergy comments 5-31 abdominal ity of 00:00: cramping [place] 00 Other Medical reaction( Branch s): Other (see comments) Severe abdominal cramping MORPHINE DRUG Active Other-Cmnt Univ ers INGREDI 5-31 ity of 00:00: [place] 00 Medical Branch PENICILL Drug Active Hives Univers INS Class 5-31 ity of 00:00: [place] 00 Medical Branch Penicill Propensi Active Hives Univer s ins ty to 5-31 ity of adverse 00:00: [place] reaction 00 Medical s Branch Penicill Propensi Active Hives 0 Univer s ins ty to 5-31 ity of adverse 00:00: [place] reaction 00 Medical s Branch penicill Adverse Active Info Not Commo n in Reaction Available [facility] MORPHINE Adverse Active Info Not Commo n Reaction Available [facility] Social History Social Habit Start Date Stop Date Quantity Comments Source History [facility] o f Alcohol Comment [place] [facility] ical Branch Exposure to 2021-08-23 2021-09-02 Not sure [facility] SARS-CoV-2 00:00:00 20:00:00 [place] [facility] (event) Branch Alcohol intake 2021-09-02 2021-09-02 Lifetime University of 00:00:00 00:00:00 non-drinker [place] [facility] (finding) Branch Tobacco use and 2020-01-24 2020-01-24 Current user Univers ity of exposure 00:00:00 00:00:00 [place] [facility] History [facility] 2020-01-24 2020-01-24 1 University o f Alcohol Frequency 00:00:00 00:00:00 [facility] edical Branch History [facility] 2020-01-24 2020-01-24 99 University o f Alcohol Std 00:00:00 00:00:00 [place] [facility] Drinks Branch History SDOH 2020-01-24 2020-01-24 1 [place] o f Alcohol Binge 00:00:00 00:00:00 [place] [facility] al Branch Sex [birth year] At [birth year] Universit y of 00:00:00 00:00:00 [facility] Smoking Status Start Date Stop Date Source Current some day smoker 2020-01-24 00:00:00 [facility] Medications Ordered Filled Start Stop Current Ordering Indication Dosage Frequency Signature Comments Components Source Medication Medication Date Date Medication? Clinician (SIG) Name Name hydroCHLORO Yes [id number] 25mg Take 1 Univers thiazide 25 5-09 tablet by ity of mg tablet 00:00: mouth [place] 00 every Medical morning. Branch benzonatate Yes [id number] 100mg Take 1 Univers 100 mg 5-09 capsule by ity of capsule 00:00: mouth 3 [place] 00 (three) Medical times Branch daily as needed for Cough. montelukast Yes [id number] 10mg Take 1 Univers 10 mg 5-09 tablet by ity of tablet 00:00: mouth [place] 00 every 24 Medical (twenty-fo Branch ur) hours as needed (symptoms) . sodium 2021- No [id number] 200uCi 200 Uni vers iodide I 07-11 microcurie ity of 123 oral 16:45: 16:32 , Oral, [place] capsule 200 00 :00 ONCE, 1 Medic al microcurie dose, On Branc h Corazon 07/11/21 at 1145, Routine triamcinolo 2020- No [id number] 40mg Univers ne 12-24 ity of acetonide 15:30: 14:22 [place] (KENALOG) 00 :00 Medical injection Branch 40 mg triamcinolo 2020- No [id number] 40mg 40 mg, Univers ne 12-24 Intramuscu ity of acetonide 15:30: 14:22 [place], ONCE, [place] (KENALOG) 00 :00 1 dose, On Medi angela injection Mon Branch 40 mg 12/24/20 at 1030, Routine DEXLANSOPRA Yes Take by Uni vers ZOLE 9-30 mouth. ity of (DEXILANT 14:05: [place] ORAL) 16 Medical Branch SERTraline 2020-0 Yes 100mg Take 100 Un jarett 100 mg 9-30 mg by ity of tablet 14:05: mouth [place] 16 daily. Medical Branch DEXLANSOPRA 2020-0 Yes Take by Uni vers ZOLE 9-30 mouth. ity of (DEXILANT 14:05: [place] ORAL) 16 Medical Branch SERTraline 2020-0 Yes 100mg Take 100 Un jarett 100 mg 9-30 mg by ity of tablet 14:05: mouth [place] 16 daily. Medical Branch DEXLANSOPRA 2020-0 Yes Take by Uni vers ZOLE 9-30 mouth. ity of (DEXILANT 14:05: [place] ORAL) 16 Medical Branch SERTraline 2020-0 Yes 100mg Take 100 Un jarett 100 mg 9-30 mg by ity of tablet 14:05: mouth [place] 16 daily. Medical Branch DEXLANSOPRA 2020-0 Yes Take by Uni vers ZOLE 9-30 mouth. ity of (DEXILANT 14:05: [place] ORAL) 16 Medical Branch SERTraline 2020-0 Yes 100mg Take 100 Un jarett 100 mg 9-30 mg by ity of tablet 14:05: mouth [place] 16 daily. Medical Branch ibuprofen 2020-0 Yes [id number] 600mg Take 1 Un jarett 600 mg 9-30 tablet by ity of tablet 00:00: mouth 4 [place] 00 (four) Medical times Branch daily with meals or snack. HYDROcodone 2020-0 Yes [id number] 1{tbl} Take 1 Un jarett -acetaminop 9-30 tablet by ity of hen 5-325 00:00: mouth [place] mg tablet 00 every 6 Medical (six) Branch hours as needed for Pain (scale 7-10) (Hold for SBP<110, DBP<60, RR<12, and/or drowsiness /sedation) . Indication s: acute pain ibuprofen 2020-0 Yes [id number] 600mg Take 1 Un jarett 600 mg 9-30 tablet by ity of tablet 00:00: mouth 4 [place] 00 (four) Medical times Branch daily with meals or snack. HYDROcodone 2020-0 Yes [id number] 1{tbl} Take 1 Un jarett -acetaminop 9-30 tablet by ity of hen 5-325 00:00: mouth [place] mg tablet 00 every 6 Medical (six) Branch hours as needed for Pain (scale 7-10) (Hold for SBP<110, DBP<60, RR<12, and/or drowsiness /sedation) . Indication s: acute pain ibuprofen 2020-0 Yes [id number] 600mg Take 1 Un jarett 600 mg 9-30 tablet by ity of tablet 00:00: mouth 4 [place] 00 (four) Medical times Branch daily with meals or snack. HYDROcodone 2020-0 Yes [id number] 1{tbl} Take 1 Un jarett -acetaminop 9-30 tablet by ity of hen 5-325 00:00: mouth [place] mg tablet 00 every 6 Medical (six) Branch hours as needed for Pain (scale 7-10) (Hold for SBP<110, DBP<60, RR<12, and/or drowsiness /sedation) . Indication s: acute pain ibuprofen 2020-0 Yes [id number] 600mg Take 1 Un jarett 600 mg 9-30 tablet by ity of tablet 00:00: mouth 4 (four) Medical times Branch daily with meals or snack. HYDROcodone 2020-0 Yes [id number] 1{tbl} Take 1 Un jarett -acetaminop 9-30 tablet by ity of hen 5-325 00:00: mouth [place] mg tablet 00 every 6 Medical (six) Branch hours as needed for Pain (scale 7-10) (Hold for SBP<110, DBP<60, RR<12, and/or drowsiness /sedation) . Indication s: acute pain benzonatate 2018-0 Yes 100mg Take 1 Uni vers 100 mg 9-28 capsule by ity of capsule 00:00: mouth (three) Medical times Branch daily as needed for Cough. benzonatate 2018-0 Yes 100mg Take 1 Uni vers 100 mg 9-28 capsule by ity of capsule 00:00: mouth 3 (three) Medical times Branch daily as needed for Cough. benzonatate 2018-0 Yes 100mg Take 1 Uni vers 100 mg 9-28 capsule by ity of capsule 00:00: mouth 3 (three) Medical times Branch daily as needed for Cough. benzonatate 2018-0 Yes 100mg Take 1 Uni vers 100 mg 9-28 capsule by ity of capsule 00:00: mouth (three) Medical times Branch daily as needed for Cough. ondansetron 2018-0 Yes 4mg Take 1 Univ ers 4 mg 1-18 tablet by ity of disintegrat 00:00: mouth [place] ing tablet 00 every 8 Medica l (eight) Branch hours as needed for Nausea and Vomiting (N/V). ondansetron 2018-0 Yes 4mg Take 1 Univ ers 4 mg 1-18 tablet by ity of disintegrat 00:00: mouth [place] ing tablet 00 every 8 Medica l (eight) Branch hours as needed for Nausea and Vomiting (N/V). ondansetron 2018-0 Yes 4mg Take 1 Univ ers 4 mg 1-18 tablet by ity of disintegrat 00:00: mouth [place] ing tablet 00 every 8 Medica l (eight) Branch hours as needed for Nausea and Vomiting (N/V). ondansetron 2018-0 Yes 4mg Take 1 Univ ers 4 mg 1-18 tablet by ity of disintegrat 00:00: mouth [place] ing tablet 00 every 8 Medica l (eight) Branch hours as needed for Nausea and Vomiting (N/V). Clindamycin Clindamycin Yes [place] not Common HCl HCl [place] defined [facility] Vital Signs Vital Name Observation Time Observation Value Comments Source Systolic blood 2021-09-03 03:57:00 132 mm[Hg[facility] Diastolic blood 2021-09-03 03:57:00 72 mm[Hg] [facility] Heart rate 2021-09-03 03:57:00 70 /min [facility] Respiratory rate 2021-09-03 03:57:00 18 /min [facility] Oxygen saturation in 2021-09-03 03:57:00 96 /min [facility] Arterial blood by [facility] Pulse oximetry Branch Body temperature 2021-09-03 01:04:00 36.39 Almita [facility] Body height 2021-09-03 01:04:[address] [facility] Body weight 2021-09-03 01:04:[address] [facility] BMI 2021-09-03 01:04:00 43.52 kg/m2 [facility] Body temperature 2020-12-20 16:31:00 36.06 Almita [facility] Body height 2020-12-20 16:31:[address] [facility] Body weight 2020-12-20 16:31:[address] [facility] BMI 2020-12-20 16:31:00 37.66 kg/m2 [facility] Procedures Procedure Date / Time Performing Clinician Source Performed COMP. METABOLIC PANEL 2021-09-03 03:53:00 Pearl Headley [facility] ([id number]) [facility] SEDIMENTATION RATE 2021-09-03 03:53:00 Kayode [facility] CBC WITH DIFF 2021-09-03 03:53:00 Headley Pearl [facility] N-TERMINAL PRO-BNP 2021-09-03 03:53:00 Pearl Headley [facility] XR CHEST 2 VW 2021-09-03 02:41:11 Pearl Headley [facility] RAPID INFLUENZA A/B 2021-09-03 01:10:[address] [facility] COVID-19 (ID NOW RAPID 2021-09-03 01:10:00 Tristan Cleaning [facility] TESTING) [facility] NOTICE OF PRIVACY 2021-09-03 00:37:22 Doctor Unassigned, No Univ [facility] PRACTICES Name [facility] CONSENT/REFUSAL FOR 2021-09-03 00:36:40 [facility], [facility] Name [facility] NM THYROID UPTAKE AND 2021-07-12 17:20:00 Requisition, Paper [facility] Encounters Start End Encounter Admission Attending Care Care Encounter Source Date/Time Date/Time Type Type Clinicians Facility Department ID 2019-06-01 [id number] 12:23:00 Juarez [id number] [place] [facility] 2022-01-14 2022-01-14 Outpatient Jameel AVILES [facility] [id number] Univers 16:00:00 16:00:[id number] [facility] 2021-10-08 2021-10-08 Outpatient R HEBER [facility] [id number] Univers 12:30:00 12:30:[id number] [facility] 2021-10-03 2021-10-03 Outpatient R RADIOLOGY [facility] [id number] Univers 11:00:00 11:00:[id number] [facility] 2021-09-18 2021-09-18 [facility] [id number] Univers 16:15:00 16:15:[id number] [facility] 2021-09-02 2021-09-03 [facility] [id number] Univers 20:15:00 00:02:00 PEARL [facility] 2021-09-02 2021-09-03 [facility] [id number] Univers 20:15:00 00:02:00 Pearl BANNERSTANLEY [id number] i [facility] [id number] [facility] [id number] [place] [id number] [place] 2021-07-12 2021-07-12 Outpatient R RADIOLOGY [facility] [id number] Univers 11:13:08 23:59:[address] [facility] 2021-07-12 2021-07-12 Hospital Radiology [facility] [id number] Univers 11:00:00 23:59:00 Encounter SPECIALTY [id number] ity of C[id number] [place] [id number] [address] 2021-07-11 2021-07-11 [facility] Radiology [facility] [id number] Univers 11:00:00 23:59:00 Encounter SPECIALTY [id number] ity of [place] [id number] [place] [id number] Ar [address] 2021-03-15 2021-03-15 [facility] [id number] Univers 12:50:00 12:50:[id number] [facility] 2021-03-15 2021-03-15 Outpatient Jameel JOVEL [facility] [id number] Univers 12:50:00 12:50:00 JAROD [facility] 2021-02-05 2021-02-05 Outpatient Jameel GEIGER [facility] [id number] Univers 11:20:00 11:20:00 TC [id number] [facility] 2021-02-05 2021-02-05 Outpatient Jameel GEIGER [facility] [id number] Univers 11:20:00 [facility]:20[facility] 2021-01-23 2021-01-23 Outpatient JUANJO [facility] [id number] Univers 11:20:00 11:20:00 TC [id number] [facility] 2021-01-23 2021-01-23 Outpatient Jameel GEIGER [facility] [id number] Univers 11:20:00 11:20:00 [facility] 2021-01-03 2021-01-03 Outpatient Jameel GEIGER [facility] [id number] Univers 11:40:00 11:40:00 TC [id number] [facility] 2021-01-03 2021-01-03 Outpatient Jameel GEIGER [facility] [id number] Univers 11:40:00 11:40:00 [facility] 2020-12-27 2020-12-27 Outpatient R [facility] [id number] Univers 14:30:00 14:30:00 [id number] [facility] 2020-12-27 2020-12-27 Outpatient Jameel GEIGER [facility] [id number] Univers 14:30:00 14:30:00 [facility] 2020-12-20 2020-12-20 Office Juanjo [facility] [id number] Univers 11:27:15 12:12:58 Visit [place]c SPECIALTY [id number] ity of CARE [id number] [facility] AT [id number] [address] 2020-12-20 2020-12-20 Outpatient Jameel GEIGER [facility] [id number] Univers 11:20:00 11:20:00 TC [id number] [facility] 2020-12-20 2020-12-20 Outpatient R JUANJO [facility] [id number] Univers 11:20:00 11:20:00 [facility] 2020-12-13 2020-12-13 Outpatient Jameel GEIGER [facility] [id number] Univers 08:40:00 08:40:00 TC [id number] [facility] 2020-12-13 2020-12-13 Outpatient R JUANJO [facility] [id number] Univers 08:40:00 08:40:[facility] 2020-12-05 2020-12-05 Outpatient R JUANJO [facility] [id number] Univers 15:35:00 15:35:00 TC [id number] [facility] 2020-12-05 2020-12-05 Outpatient Jameel GEIGER [facility] [id number] Univers 15:35:00 15:35:00 [facility] 2020-11-27 2020-11-27 Outpatient R [facility] [id number] Univers 13:15:00 13:15:00 [id number] [facility] 2020-11-27 2020-11-27 Outpatient R MO, [facility] [id number] Univers 11:30:00 11:30:00 CRISTINA [facility] 2020-11-22 2020-11-22 Outpatient R JORDIN, [facility] [id number] Univers 13:40:00 13:40:00 JOHN [facility] 2020-01-23 2020-01-23 Emergency X [facility] ERT [id number] Univers 21:09:00 21:09:00 [facility] 2019-05-24 2019-05-24 [id number] [facility] 16:03:00 16:03:00 [facility] 2017-11-20 2017-11-20 [facility] [id number] Common 08:00:00 08:00:00 [facility] Results Test Description Test Time Test Comments Results Result Comments Source N-TERMINAL PRO-BNP 2021-09-03 04:26:55 Test Item Value Reference Range Interpretation Comme nts NT-proBNP (test code = 105 pg/mL See_Comment [Aut omated message] The [id number]) system which ge nerated this result tra nsmitted reference range : <=125. The reference r pradeep was not used to int erpret this result as kristal l/abnormal. MANDY (test code = MANDY) Biotin has been reported to cause a negative bias, interpret results relative to patient's use of biotin. Lab Interpretation (test Normal code = 00105-0) [facility] [id number] 04:26:24 Test Item Value Reference Range Interpretation Comments ESR (test code = See_Comment [Automated message] [id number]) The system [employer] h generated this result transmitted ref erence range: 0 - 20 m m/HR. The reference r pradeep was not used to interpret this result as normal/abnor mal. Lab Interpretation (test Normal code = 87498-1) [facility] MET[facility]OLIC PAN[facility] ([id number])2021-09-03 04:18:53 Test Item Value Reference Range Interpretation Comments NA (test code = 139 mmol/L 135-145 7735757730) K (test code = 3.8 mmol/L 3.5-5.0 6222962134) CL (test code = 106 mmol/L 98-108 2067095258) CO2 TOTAL (test code = 22 mmol/L 23-31 L 8079829345) AGAP (test code = 2-16 4319398580) BUN (test code = 13 mg/dL 7-23 8389937923) GLUCOSE (test code = 106 mg/dL 70-110 6520956357) CREATININE (test code = 0.77 mg/dL 0.50-1.04 5387120276) TOTAL BILI (test code = 0.6 mg/dL 0.1-1.8 2460685764) CALCIUM (test code = 9.5 mg/dL 8.6-10.6 1178220201) T PROTEIN (test code = 7.2 g/dL 6.3-8.2 0588076362) ALBUMIN (test code = 4.6 g/dL 3.5-5.0 3165030791) ALK PHOS (test code = 110 U/L 34-122 4175855508) ALTv (test code = 15 U/L 5-35 1742-6) AST(SGOT) (test code = 20 U/L 13-40 2735262001) eGFR (test code = mL/min/1.73m2 7057159213) MANDY (test code = MANDY) Association of Glomerular Filtration Rate (GFR) and Staging of Kidney Disease* + --+ --+ ------+| GFR (mL/min/1.73 m2) ?| With Kidney Damage ?| ?Without Kidney Damage+ --------+ --------+ +| ?>90 ?| ?Stage one ?| ? Normal ?+ ---+ ---+ -------+| ?60-89 ?| ?Stage two ?| ? Decreased GFR ? + --+ --+ ------+| ?30-59 ?| ?Stage three ?| ? Stage three ? + --+ --+ ------+| ?15-29 ?| ?Stage four ? | ? Stage four ?+ ---+ ---+ -------+| ?<15 (or dialysis) ? ?| ?Stage five ? | ? Stage five ?+ ---+ ---+ -------+ *Each stage assumes the associated GFR level has been in effect for at least three months. ?Stages 1 to 5, with or without kidney disease, indicate chronic kidney disease. Notes: Determination of stages one and two (with eGFR >59mL/min/1.73 m2) requires estimation of kidney damage for at least three months as defined by structural or functional abnormalities of the kidney, manifested by either:Pathological abnormalities or Markers of kidney damage (including abnormalities in the composition of the blood or urine or abnormalities in imaging tests). Lab Interpretation Abnormal (test code = 99169-4) [facility] WITH [id number] 04:01:51 Test Item Value Reference Range Interpretation Comments WBC (test code = See_Comment [Automated 5390-2) message] The sy stem which generated this result transmitted reference range : 4.30 - 11.10 10*3/?L. The reference range was not used to interpret this result as normal/abnormal . RBC (test code = See_Comment [Automated 789-8) message] The sy stem which generated this result transmitted reference range : 3.93 - 5.25 10*6/?L. The reference range was not used to interpret this result as normal/abnormal . HGB (test code = 13.5 g/dL 11.6-15.0 718-7) HCT (test code = 41.8 % 35.7-45.2 4544-3) MCV (test code = 85.0 fL 80.6-95.5 787-2) MCH (test code = 27.4 pg 25.9-32.8 785-6) MCHC (test code = 32.3 g/dL 31.6-35.1 786-4) RDW-SD (test code = 45.3 fL 39.0-49.9 30575-6) RDW-CV (test code = 14.6 % 12.0-15.5 788-0) PLT (test code = See_Comment [Automated 777-3) message] The sy stem which generated this result transmitted reference range : 166 - 358 10*3/ ?L. The reference r pradeep was not used to interpret this result as normal/abnormal . MPV (test code = 10.2 fL 9.5-12.9 08902-6) NRBC/100 WBC (test See_Comment [Automat ed code = 2892307721) message] The system which generated this result transmitted reference range : 0.0 - 10.0 /100 WBCs. The refer ence range was not u sed to interpret th is result as normal/abnormal . NRBC x10^3 (test code <0.01 See_Comment [Auto mated = 0928922579) message] The s ystem which generated this result transmitted reference range : 10*3/?L. The reference range was not used to interpret this result as normal/abnormal . GRAN MAT (NEUT) % 58.2 % (test code = 770-8) IMM GRAN % (test code 0.40 % = 9028882705) LYMPH % (test code = 33.8 % 736-9) MONO % (test code = 5.6 % 5905-5) EOS % (test code = 1.2 % 713-8) BASO % (test code = 0.8 % 706-2) GRAN MAT x10^3(ANC) 6.19 10*3/uL 1.88-7.09 (test code = 8416798097) IMM GRAN x10^3 (test 0.04 10*3/uL 0.00-0.06 code = 8526959218) LYMPH x10^3 (test code 3.60 10*3/uL 1.32-3.29 H = 731-0) MONO x10^3 (test code 0.60 10*3/uL 0.33-0.92 = 742-7) EOS x10^3 (test code = 0.13 10*3/uL 0.03-0.39 711-2) BASO x10^3 (test code 0.08 10*3/uL 0.01-0.07 H = 704-7) Lab Interpretation Abnormal (test code = 78199-4) [facility] DUP VEIN UNI/[id number] 18:38:00 Patient Name: CAPRICE ARGUETA Unit No: [id number] EXAMS: CPT CODE: [id number] DUP VEIN UNI/LTD 75810 FINDINGS: Left lower extremity grayscale and Doppler venous ultrasound demonstrates normal flow and luminal compressibility without evidence of intraluminal thrombus. IMPRESSION: No evidence of DVT within deep venous structures of the left lower extremity. at 1838 Reported and signed by: Eusebio Kirkpatrick M.D. CC: Juarez Hicks MD Technologist: MORGAN ANDERSEN RDMS, RVT Transcribed D/ (1838) [facility] NAME: CAPRICE ARGUETA [address] [facility] PHYS: Juarez Bowen : 1980 AGE: 37 SEX: F [place], [place] [address] LOC: Y.RAD PHONE #: [phone] EXAM DATE: 07/14/2018 STATUS: REG CLI FAX #: [phone] RAD #: D/C DT PAGE 1 Signed Report Patient Name: CAPRICE ARGUETA Unit No: [id number] EXAMS: CPT CODE: [id number] DUP VEIN UNI/LTD 21322 (Continued) Orig Print D/T: S: 07/14/2018 (1841) [facility] NAME: CAPRICE ARGUETA [address] [facility] PHYS: Juarez Bowen : 1980 AGE: 37 SEX: F [place], [place] [address] LOC: Y.RAD PHONE #: [phone] EXAM DATE: 07/14/2018 STATUS: REG CLI FAX #: [phone] RAD #: D/C DT PAGE 2 Signed Report"
[2022-01-06] MEDS ORDERED: DIAZEPAM 10 MG/2 ML INJ SYRINGE ONE (19:26)
[2022-01-06 19:35] LABS: Urine Blood Negative (Negative); Urine Glucose Negative (Negative); Urine Protein Negative (Negative); Urine Specific Gravity 1.025 (1.005-1.030)
[2022-01-06] MEDS ORDERED: NA CHLORIDE 0.9% 1,000 ML ONE (19:45)
[2022-01-06 19:48] LABS: Absolute Lymphocytes (CBC) 1.4 K/uL (0.7-4.9); Hematocrit 39.2 % (36.0-45.0); Lymphocytes % 12.5 % (15.3-44.8); MCV 81.5 fL (80-100); MPV 8.3 fL (7.6-11.3)
[2022-01-06 19:53] LABS: Protime INR 1.07
[2022-01-06] MEDS ORDERED: DIPHENHYDRAMINE 50 MG/ML VIAL ONE (19:53)
[2022-01-06 20:08] LABS: Barbiturates NEGATIVE (NEGATIVE); Benzodiazepines POSITIVE (NEGATIVE); Cocaine NEGATIVE (NEGATIVE); METHAMPHETAM POSITIVE (NEGATIVE); Methadone NEGATIVE (NEGATIVE); Opiates NEGATIVE (NEGATIVE); Phencyclidine NEGATIVE (NEGATIVE); THC Cannibis POSITIVE (NEGATIVE)
[2022-01-06 20:09] LABS: ALT/SGPT 62 U/L (12-78); AST/SGOT 40 U/L (15-37); Alkaline Phosphatase 127 U/L (45-117); BUN Blood Urea Nitrogen 9 mg/dL (7-18); Bicarbonate 20 mmol/L (21-32); Bilirubin Direct 0.1 mg/dL (0-0.2); Bilirubin Total 0.5 mg/dL (0.2-1.0); Glomerular Filtration Rate 87 ml/min (=/>90); Glucose Level 133 mg/dL (74-106); Potassium 3.4 mmol/L (3.5-5.1); Protein, Total 7.7 g/dL (6.4-8.2); Sodium Level 139 mmol/L (136-145)
[2022-01-06] MEDS ORDERED: TIZANIDINE 4 MG TABLET ONE (20:56)
[2022-01-06] MEDS ORDERED: POTASSIUM 25 MEQ EFFERV TAB ONE (21:39)
--- NOTE | 2022-01-06 21:43 | ER ---
Nurse's Notes [facility] Name: Yuly Julien Age: 41 yrs Sex: Female : 1980 Arrival Date: 01/06/2022 Time: 18:36 Bed 8 Private MD: Raquel Fagan Diagnosis: Adverse reaction to drug or medicaments Presentation: 01/06 18:58 Chief complaint: Patient states: "I took naltrexone around noon today and 30 minutes aa5 after I started twitching and having tremors like I can't control my body". Pt reports she took the medication for the 1 st time today, had been off the medication for 1 week. Coronavirus screen: At this time, the client does not indicate any symptoms associated with coronavirus-19. Ebola Screen: Patient denies travel to an Ebola-affected area in the 21 days before illness onset. Initial Sepsis Screen: Does the patient meet any 2 criteria? No. Patient's initial sepsis screen is negative. Does the patient have a suspected source of infection? No. Patient's initial sepsis screen is negative. Risk Assessment: Do you want to hurt yourself or someone else? Patient reports no desire to harm self or others. Onset of symptoms was December 2021. 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 - Social history:: Smoking status: Patient denies any tobacco usage or history of. Screenin:36 Abuse screen: Denies threats or abuse. Denies injuries from another. Nutritional eh3 screening: No deficits noted. Tuberculosis screening: No symptoms or risk factors identified. Fall Risk None identified. Assessment: 18:30 General: Appears distressed, uncomfortable, Behavior is appropriate for age, agitated, eh3 restless. 18:30 Pain: Denies pain. Neuro: Level of Consciousness is awake, alert, obeys commands, eh3 Oriented to person, place, time, situation, Human Resources Services Specialist are equal bilaterally Speech is normal, Pupils are PERRLA. Cardiovascular: Capillary refill < 3 seconds Patient's skin is warm and dry. Respiratory: Airway is patent Respiratory effort is even, unlabored. GI: No signs and/or symptoms were reported involving the gastrointestinal system. Abdomen is round non-distended. : No signs and/or symptoms were reported regarding the genitourinary system. EENT: No signs and/or symptoms were reported regarding the EENT system. Derm: No signs and/or symptoms reported regarding the dermatologic system. Musculoskeletal: Circulation, motion, and sensation intact. Range of motion: intact in all extremities. 19:30 Reassessment: No changes from previously documented assessment. Patient and/or family eh3 updated on plan of care and expected duration. Pain level reassessed. Patient is alert, oriented x 3, equal unlabored respirations, skin warm/dry/pink. 20:30 Reassessment: No changes from previously documented assessment. Patient and/or family eh3 updated on plan of care and expected duration. Pain level reassessed. Patient is alert, oriented x 3, equal unlabored respirations, skin warm/dry/pink. 21:30 Reassessment: No changes from previously documented assessment. Patient and/or family eh3 updated on plan of care and expected duration. Pain level reassessed. Patient is alert, oriented x 3, equal unlabored respirations, skin warm/dry/pink. Vital Signs: 18:58 BP 125 / 87; Pulse 87; Resp 16 S; Temp 97.2(TE); Pulse Ox 98% ; Weight 129.27 kg (R); aa5 Height 5 ft. 10 in. (177.80 cm) (R); 19:36 BP 150 / 71; Pulse 69; Resp 14; Pulse Ox 98% ; eh3 21:32 BP 125 / 62; Pulse 78; Pulse Ox 98% on R/A; eh3 18:58 Body Mass Index 40.89 (129.27 kg, 177.80 cm) aa5 ED Course: 18:30 Patient has correct armband on for positive identification. Placed in gown. Bed in low eh3 position. Call light in reach. Side rails up X2. Adult w/ patient. Client placed on continuous cardiac and pulse oximetry monitoring. NIBP monitoring applied. Door closed. Noise minimized. Lights dimmed. Warm blanket given. 18:30 No provider procedures requiring assistance completed. eh3 18:36 Patient arrived in ED. am2 18:36 Raquel Fagan FNP-C is Private Physician. am2 18:57 Arm band placed on. aa5 19:01 Triage completed. aa5 19:06 Amber Brown, BRETT is Primary Nurse. ld1 19:11 [facility] 19:11 Justyn Berry MD is Attending Physician. [facility] 21:50 IV discontinued, intact, bleeding controlled, No redness/swelling at site. Pressure eh3 dressing applied. Administered Medications: 19:35 Drug: Valium (diazepam) 5 mg Route: IVP; Site: right hand; ld1 19:49 Follow up: Response: No adverse reaction ld1 19:42 Drug: NS 0.9% 1000 ml Route: IV; Rate: 1 bolus; Site: right antecubital; ld1 21:00 Follow up: IV Status: Completed infusion; IV Intake: 1000ml eh3 19:49 Drug: Benadryl (diphenhydrAMINE) 12.5 mg Route: IVP; Site: right hand; ld1 19:49 Follow up: Response: No adverse reaction ld1 21:11 Drug: Zanaflex 4 mg Route: PO; eh3 21:53 Follow up: Response: No adverse reaction eh3 21:32 Drug: K-Lyte (potassium) Effervescent Tablet 50 mEq Route: PO; eh3 21:54 Follow up: Response: No adverse reaction eh3 Medication: 18:30 VIS not applicable for this client. eh3 Intake: 21:00 IV: 1000ml; Total: 1000ml. eh3 Outcome: 21:43 Discharge ordered by . [facility] 21:49 Discharged to home ambulatory, with family. eh3 21:49 Condition: stable 21:49 Discharge instructions given to patient, family, Instructed on discharge instructions, follow up and referral plans. medication usage, Demonstrated understanding of instructions, follow-up care, medications, Prescriptions given X 1. 22:05 Patient left the ED. eh3 Signatures: Chriss Pereyra PA PA jmm Calderon, Audri, RN RN 5 Samira Fofana am2 Amber Brown RN RN ld1 Allegra Hannon RN RN eh3 Corrections: (The following items were deleted from the chart) 20: 19:36 Patient has correct armband on for positive identification. Placed in gown. Bed eh3 in low position. Call light in reach. Side rails up X2. Adult w/ patient. [facility] : 19:36 Client placed on continuous cardiac and pulse oximetry monitoring. NIBP 3 monitoring applied. [facility] : 19:36 Door closed. Noise minimized. Lights dimmed. Warm blanket given. [facility] 20:52 20:50 General: Appears distressed, uncomfortable, Behavior is appropriate for age, 3 agitated, restless, [facility] : 20:50 Pain: Denies pain. [place] [id number] : 20:50 Neuro: Level of Consciousness is awake, alert, obeys commands, Oriented to [address], [address], time, situation, Human Resources Services Specialist are equal bilaterally Speech is normal, Pupils are PERRLA, [facility] : 20:50 Cardiovascular: Capillary refill < 3 seconds Patient's skin is warm and dry. [facility] 20:52 20:50 Respiratory: Airway is patent Respiratory effort is even, unlabored, [place] [address] 20: 20:50 GI: No signs and/or symptoms were reported involving the gastrointestinal system. 3 Abdomen is round non-distended, 3 : 20:50 : No signs and/or symptoms were reported regarding the genitourinary system. [facility] : 20:50 EENT: No signs and/or symptoms were reported regarding the EENT system. 3 3 20: 20:50 Derm: No signs and/or symptoms reported regarding the dermatologic system. 3 3 20:52 20:50 Musculoskeletal: Circulation, motion, and sensation intact. Range of motion: [facility] intact in all extremities, [facility]
--- NOTE | 2022-01-06 21:44 | EDPHYS ---
Physician Documentation [facility] Name: Yuly Julien Age: 41 yrs Sex: Female : 1980 Arrival Date: 01/06/2022 Time: 18:36 Bed 8 Private MD: Raquel Fagan ED Physician Justyn Berry HPI: 01/06 19:11 This 41 yrs old Female presents to ER via Ambulatory with complaints of medication side jmm effects/twtiching/spasms. 19:11 Is a 41-year-old female with history of depression, hyperlipidemia, hypertension the jmm presents emerged department with complaints of generalized spasms which began after taking 50 mg dose of naloxone. Patient states she was taking this for weight loss but did discontinue this for about a week due to an illness. Patient states also taking Adipex. Denies any history of opioid abuse.. 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 - Social history:: Smoking status: Patient denies any tobacco usage or history of. ROS: 19:11 Constitutional: Negative for fever, chills, and weight loss, Cardiovascular: Negative jmm for chest pain, palpitations, and edema, Respiratory: Negative for shortness of breath, cough, wheezing, and pleuritic chest pain. 19:11 All other systems are negative. Exam: 19:11 Head/Face: atraumatic. Eyes: EOMI, no conjunctival erythema appreciated ENT: Moist jmm Mucus Membranes Neck: Trachea midline, Supple Chest/axilla: Normal chest wall appearance and motion. Cardiovascular: Regular rate and rhythm. No edema appreciated Respiratory: Normal respirations, no respiratory distress appreciated Abdomen/GI: Non distended Back: Normal ROM Skin: General appearance color normal 19:11 Constitutional: The patient appears alert, awake, anxious, uncomfortable. 19:11 Musculoskeletal/extremity: ROM: intact in all extremities. 19:11 Skin: Appearance: Color: normal in color. 19:11 Neuro: Orientation: is normal, Mentation: is normal, Memory: is normal, Gait: is steady. 19:11 Psych: Behavior/mood is pleasant, cooperative, anxious. Vital Signs: 18:58 BP 125 / 87; Pulse 87; Resp 16 S; Temp 97.2(TE); Pulse Ox 98% ; Weight 129.27 kg (R); aa5 Height 5 ft. 10 in. (177.80 cm) (R); 19:36 BP 150 / 71; Pulse 69; Resp 14; Pulse Ox 98% ; eh3 21:32 BP 125 / 62; Pulse 78; Pulse Ox 98% on R/A; eh3 18:58 Body Mass Index 40.89 (129.27 kg, 177.80 cm) aa5 MDM: 19:20 Patient medically screened. [facility] 21:14 Data reviewed: vital signs, nurses notes. Counseling: I had a detailed discussion with jm the patient and/or guardian regarding: the historical points, exam findings, and any diagnostic results supporting the discharge/admit diagnosis. 21:42 Counseling: I had a detailed discussion with the patient and/or guardian regarding: lab [facility] results, the need for outpatient follow up, to return to the emergency department if symptoms worsen or persist or if there are any questions or concerns that arise at home. 01/06 19:11 Order name: Acetaminophen; Complete Time: 20:12 [facility] 01/06 19:11 Order name: Basic Metabolic Panel; Complete Time: 20:12 [facility] 01/06 19:11 Order name: CBC with Diff; Complete Time: 20:12 [facility] 01/06 19:11 Order name: ETOH Level; Complete Time: 20:12 [facility] 01/06 19:11 Order name: Hepatic Function; Complete Time: 20:12 [facility] 01/06 19:11 Order name: PT-INR; Complete Time: 20:12 [facility] 01/06 19:11 Order name: Ptt, Activated; Complete Time: 20:12 [facility] 01/06 19:11 Order name: Salicylate; Complete Time: 20:12 [facility] 01/06 19:11 Order name: Urine Drug Screen; Complete Time: 20:12 [facility] 01/06 19:36 Order name: Urine Dipstick-Ancillary; Complete Time: 19:40 [facility] 01/06 19:11 Order name: IV Saline Lock; Complete Time: 19:42 [facility] 01/06 19:11 Order name: Labs collected and sent; Complete Time: 19:42 [facility] 01/06 19:11 Order name: Suicide Screening ([place]); Complete Time: 19:42 [facility] 01/06 19:11 Order name: Urine Dipstick-Ancillary (obtain specimen); Complete Time: 21:11 [facility] Administered Medications: 19:35 Drug: Valium (diazepam) 5 mg Route: IVP; Site: right hand; ld1 19:49 Follow up: Response: No adverse reaction ld1 19:42 Drug: NS 0.9% 1000 ml Route: IV; Rate: 1 bolus; Site: right antecubital; ld1 21:00 Follow up: IV Status: Completed infusion; IV Intake: 1000ml eh3 19:49 Drug: Benadryl (diphenhydrAMINE) 12.5 mg Route: IVP; Site: right hand; ld1 19:49 Follow up: Response: No adverse reaction ld1 21:11 Drug: Zanaflex 4 mg Route: PO; eh3 21:53 Follow up: Response: No adverse reaction eh3 21:32 Drug: K-Lyte (potassium) Effervescent Tablet 50 mEq Route: PO; eh3 21:54 Follow up: Response: No adverse reaction eh3 Disposition: 01/07 01:34 Co-signature as Attending Physician, Justyn Berry MD I agree with the assessment and kdr plan of care. Disposition Summary: 01/06/22 21:43 Discharge Ordered Location: Home [facility] Condition: Stable [facility] Diagnosis - Adverse reaction to drug or medicaments [facility] Followup: [facility] - With: Private Physician - When: 2 - 3 days - Reason: Recheck today's complaints, Continuance of care, Re-evaluation by your physician Discharge Instructions: - Discharge Summary Sheet [facility] - Opioid Withdrawal Treatment [facility] - Form - Excuse from Work, School, or Physical Activity eh3 Forms: - Medication Reconciliation Form [facility] - Thank You Letter [facility] - Antibiotic Education [facility] - Prescription Opioid Use [facility] Prescriptions: - Zanaflex 4 mg Oral Tablet - take 1 tablet by ORAL route every 8 hours As needed; 20 tablet; Refills: 0, [facility] Product Selection Permitted Signatures: Dispatcher [employer] Justyn Lopez MD MD kdr Mickail, Joel, PA PA [facility] Castellanos, Debbie, RN RN aa5 Amber Brown, RN RN ld1 Allegra Hannon, RN RN eh3
[2022-01-07 02:21] VITALS: TEMP 97.2; O2SAT 98
[2022-01-07 02:26] VITALS: BP 125/62
== END 2022-01-06 22:05 | disposition home or self-care (01) ==
LOC: ER 18:27
DX: M62.838 Other muscle spasm (principal); T50.7X5A Adverse effect of analeptics and opioid receptor antagonists, initial encounter; Z88.5 Allergy status to narcotic agent; Z88.0 Allergy status to penicillin; Z91.048 Other nonmedicinal substance allergy status; I10 Essential (primary) hypertension
CPT/HCPCS: 36415; 80048; 80076; 80307; 80320; 80329; 81003; 85025; 85610; 85730; 96361; 96374; 96375; 99283; J1200; J3360; J7030

== ENCOUNTER 2022-03-06 13:07 | Emergency (ER) | payer OTHER ==
--- OUTSIDE RECORDS SUMMARY | 2022-03-06 13:12 | XMS REPORT | Continuity of Care Document ---
:1980 Author Organization [facility] t Address [address] [place] [address] Care Team Providers Name Role Phone MISSAEL CORONEL Primary Care Physician Unavailable Juarez Stoll Attending Clinician Unavailable RADIOLOGY Attending Clinician Unavailable WILTON AVILES Attending Clinician Unavailable PEARL HEADLEY Attending Clinician Unavailable Pearl Headley MD Attending Clinician Radiology Attending Clinician Unavailable JAROD JOVEL Attending Clinician Unavailable TC GEIGER Attending Clinician Unavailable Bienvenido KHANNA, [place] Attending Clinician Cristina Arita MD Attending Clinician Vls-Lab Attending Clinician Unavailable Varghese Vaca MD Attending Clinician Dale Vaca MD Attending Clinician CRISTINA ARITA Attending Clinician Unavailable DILLON BRENNER Attending Clinician Unavailable Dillon Brenner DO Attending Clinician Doctor Unassigned, [place] Attending Clinician Unavailable Tristan Burns Attending Clinician Joanna Valadez MD Attending Clinician MISSAEL CORONEL Admitting Clinician Unavailable PEARL HEADLEY Admitting Clinician Unavailable Allyson PHILLIPS, Joanna Becerra Admitting Clinician Payers Payer Name Policy Type Policy Number Effective Date Expiration Date Rigo HIDALGO [facility] [id number] 2022 STAR PLUS 00:00:00 Problems Condition Condition Condition Status Onset Resolution Last Treating Co mments Source Name Details Category Date Date Treatment Clinician Date Pleuritic Pleuritic Disease Active Uni vers chest pain chest pain 01-23 it y of 00:00: Medical Branch Obesity Obesity Disease Active Univers (BMI (BMI 9- ity of 30-39.9) 30-39.9) 00:00: Medical Branch Pain in Pain in Diagnosis Active Commo n left ankle left ankle Sp anjum and joints and joints - [facility] of left of left foot foot [facility] Closed Closed Diagnosis Active Common displaced displaced Spir it fracture fracture - [facility] of lateral of lateral malleolus malleolus Luke s of left of left [facility] fibula fibula Center with with delayed delayed [...] Active Other-Cmnt 0 Univ ers ONE INGREDI 15 ity of 00:00: 00 Medical Branch Penicill DA Active MO 2019-0 [facility] ins - [facility] 00:[facility]: [facility] [place] morphine DA Active MO 2020-0 [facility] - [facility] 00:00: [facility] [place] adhesive DA Active MO 2019-0 [facility] tape 05-24 Woman's 00:00: [facility] [place] Penicill DA Active MO SOB, RASHES 2019-0 [facility] ins 05-24 Woman's 00:00: [facility]ospita 00 [facility] [place] morphine DA Active MO SEVERE 2019-0 [facility] MUSCLES 05-24 Woman's CRAMPS 00:00: Hospita 00 [facility] [place] adhesive DA Active MO TEARS SKIN, [facility] tape RASHES, 05-24 Woman's BRUISING 00:00: Hospita 00 [facility] [place] Penicill DA Active MO 2019-0 [facility] ins 05-27 00:00: Orthope 00 dic Hospita l morphine DA Active MO 2018-0 [facility] 05-27 00:00: Orthope 00 dic Hospita l adhesive DA Active MO [facility] tape 05-27 00:00: Orthope 00 dic Hospita l Penicill DA Active MO SOB, RASHES [facility] ins 05-27 [place] 00:00: Orthope 00 dic Hospita l morphine DA Active MO SEVERE 2018- [facility] MUSCLES 05-27 [place] CRAMPS 00:00: Orthope 00 dic Hospita l adhesive DA Active MO TEARS SKIN, [facility] tape RASHES, 05-27 [place] BRUISING 00:00: Orthope 00 dic Hospita l Penicill DA Active MO [facility] ins 05-14 [place] 00:00: Orthope 00 dic Hospita l morphine DA Active MO [facility] 05-14 [place] 00:00: Orthope 00 dic Hospita l adhesive DA Active MO 0 [facility] tape 05-14 [place] 00:00: Orthope 00 dic Hospita l Morphine Drug Active Other - See Severe Uni vers Allergy comments 09-24 abdominal ity of 00:00: cramping [place] 00 Other Medical reaction( Branch s): Other (see comments) Severe abdominal cramping MORPHINE DRUG Active Other-Cmnt Univ ers INGREDI 09-24 ity of 00:00: [place] 00 Medical Branch PENICILL Drug Active Hives Univers INS Class 5-31 ity of 00:00: [place] 00 Medical Branch Penicill Propensi Active Hives Univer s ins ty to 5-31 ity of adverse 00:00: [place] reaction 00 Medical s Branch Penicill Propensi Active Hives Univer s ins ty to 09-24 ity of adverse 00:00: [place] reaction 00 Medical s Branch penicill Adverse Active Info Not Commo n in Reaction Available [facility] MORPHINE Adverse Active Info Not Commo n Reaction Available [facility] Social History Social Habit Start Date Stop Date Quantity Comments Source History SDKS University o f Alcohol Comment [place] Med ical Branch Exposure to 2021-08-23 2021-09-02 Not sure University of SARS-CoV-2 00:00:00 20:00:00 [facility] (event) Branch Alcohol intake 2021-09-02 2021-09-02 Lifetime University of 00:00:00 00:00:00 non-drinker [facility] (finding) Branch Tobacco use and 2020-01-24 2020-01-24 Current user Univers ity of exposure 00:00:00 00:00:00 [place] [facility] History SDOH 2020-01-24 2020-01-24 1 University o f Alcohol Frequency 00:00:00 00:00:00 [place] M edical Branch History SDKS 2020-01-24 2020-01-24 99 [place] o f Alcohol Std 00:00:00 00:00:00 [place] Medical Drinks Branch History [facility] 2020-01-24 2020-01-24 1 [place] o f Alcohol Binge 00:00:00 00:00:00 [place] Medic al [place] Sex Assigned At [birth year] Universit y of 00:00:00 00:00:00 [facility] Smoking Status Start Date Stop Date Source Current some day smoker 2020-01-24 00:00:00 [facility] Medications Ordered Filled Start Stop Current Ordering Indication Dosage Frequency Signature Comments Components Source Medication Medication Date Date Medication? Clinician (SIG) Name Name hydroCHLORO Yes [id number] 25mg Take 1 Univers thiazide 25 5-09 tablet by ity of mg tablet 00:00: mouth 00 every Medical morning. Branch benzonatate Yes [id number] 100mg Take 1 Univers 100 mg 5-09 capsule by ity of capsule 00:00: mouth 3 00 (three) Medical times Branch daily as needed for Cough. montelukast Yes [id number] 10mg Take 1 Univers 10 mg 5-09 tablet by ity of tablet 00:00: mouth [place] 00 every 24 Medical (twenty-fo Branch ur) hours as needed (symptoms) . sodium 2021- No [id number] 200uCi 200 Uni vers iodide I 3-17 03-17 microcurie ity of 123 oral 16:45: 16:32 , Oral, [place] capsule 200 00 :00 ONCE, 1 Medic al microcurie dose, On [facility] h Corazon 3/17/22 at 1145, Routine triamcinolo 2020- No [id number] 40mg Univers ne 12-24 ity of acetonide 15:30: 14:22 [place] (KENALOG) 00 :00 Medical injection Branch 40 mg triamcinolo 2020- No [id number] 40mg 40 mg, Univers ne 12-24 Intramuscu ity of acetonide 15:30: 14:22 lar, ONCE, [place] (KENALOG) 00 :00 1 dose, On Medi angela injection Mon Branch 40 mg 12/24/20 at 1030, Routine DEXLANSOPRA 2020-0 Yes Take by Uni vers [...] 16 daily. Medical Branch ibuprofen 2020-0 Yes [id number] 600mg Take 1 Un jarett 600 mg [...] Indication s: acute pain ibuprofen 2020-0 Yes [id number] 600mg Take 1 Un jarett 600 mg [...] /sedation) . Indication s: acute pain ibuprofen 2019-0 Yes [id number] 600mg Take 1 Un jarett 600 mg [...] /sedation) . Indication s: acute pain ibuprofen 2019-0 Yes [id number] 600mg Take 1 Un jarett 600 mg [...] Clindamycin Yes Tarun not Common HCl HCl [facility] Vital Signs Vital Name Observation Time Observation Value Comments Source Systolic blood 2021-09-03 03:57:00 132 mm[Hg] Univer sity of pressure [facility] Diastolic blood 2021-09-03 03:57:00 72 mm[facility]Hg] [facility] rate 2021-09-03 03:57:00 70 /min [facility] Respiratory rate 2021-09-03 03:57:00 18 /min [facility] Oxygen saturation in 2021-09-03 03:57:00 96 /min [facility] Arterial blood by [facility] Pulse oximetry [place] Body temperature 2021-09-03 01:04:00 36.39 Almita [facility] Body height 2021-09-03 01:04:00 180.3 cm [facility] Body weight 2021-09-03 01:04:00 141.522 kg [facility] BMI 2021-09-03 01:04:00 43.52 kg/m2 [facility] Body temperature 2020-12-20 16:31:00 36.06 Almita [facility] Body height 2020-12-20 16:31:00 180.3 cm [facility] Body weight 2020-12-20 16:31:00 122.471 kg [facility] BMI 2020-12-20 16:31:00 37.66 kg/m2 [facility] Procedures Procedure Date / Time Performing Clinician Source Performed COMP. METABOLIC PANEL 2021-09-03 03:53:00 Pearl Headley [facility] ([id number]) [facility] SEDIMENTATION RATE 2021-09-03 03:53:00 Pearl Headley [facility] CBC WITH DIFF 2021-09-03 03:53:00 Kayode Pearl [place] o f [facility] N-TERMINAL PRO-BNP 2021-09-03 03:53:00 Pearl Headley [facility] XR CHEST 2 VW 2021-09-03 02:41:11 Pearl Headley [place] o f [facility] RAPID INFLUENZA A/B 2021-09-03 01:10:00 Tristan Cleaning [facility] COVID-19 (ID NOW RAPID 2021-09-03 01:10:00 Tristan Cleaning [facility] TESTING) [facility] NOTICE OF PRIVACY 2021-09-03 00:37:22 Doctor Unassigned, No [facility] PRACTICES Name [facility] Branch CONSENT/REFUSAL FOR 2021-09-03 00:36:40 Doctor Unassigned, No [facility] [place] DIAGNOSIS AND TREATMENT Name Medical Branch NM THYROID UPTAKE AND 2021-07-12 17:20:00 Requisition, Paper Uni [facility] [place] SCAN [facility] Encounters Start End Encounter Admission Attending Care Care Encounter Source Date/Time Date/Time Type Type Clinicians Facility Department ID 2019-06-01 Inpatient JEAN CARLOS PereiraTO DAYS [id number] [facility] 12:23:00 Juarez [id number] [place] [facility] 2022-03-11 2022-03-11 Outpatient R RADIOLOGY [facility] [id number] Univers 00:00:00 00:00:00 ity [facility] 2022-01-14 2022-01-14 Outpatient R TRACI [facility] [id number] Univers 16:00:00 16:00:00 WILTON [facility] 2021-09-02 2021-09-03 [facility] [id number] Univers 20:15:00 00:02:00 PEARL [facility] 2021-09-02 2021-09-03 [facility] [id number] Univers 20:15:00 00:02:00 Pearl MORALES [id number] i ty [facility] [id number] [facility] [place] [id number] [facility] 084 [place] 2021-07-12 2021-07-12 Outpatient R RADIOLOGY [facility] [id number] Univers 11:13:08 23:59:00 ity of [facility] 2021-07-12 2021-07-12 Hospital Radiology [facility] [id number] Univers 11:00:00 23:59:00 Encounter SPECIALTY [id number] ity [id number] [id number] Vt dical RACHAEL 805 [facility] 2021-07-11 2021-07-11 Hospital Radiology [facility] [id number] Univers 11:00:00 23:59:00 Encounter SPECIALTY [id number] ity [id number] [id number] Vt ta CANO 805 [facility] 2021-03-15 2021-03-15 Outpatient Jameel JOVEL [facility] [id number] Univers 12:50:00 12:50:00 JAROD ity [facility] 2021-02-05 2021-02-05 Outpatient Jameel GEIGER [facility] [id number] Univers 11:20:00 11:20:00 TC ity [facility] 2021-01-23 2021-01-23 Outpatient Jameel GEIGER [facility] [id number] Univers 11:20:00 11:20:00 TC ity [facility] 2021-01-03 2021-01-03 Outpatient Jameel GEIGER [facility] [id number] Univers 11:40:00 11:40:00 TC [facility] 2020-12-27 2020-12-27 Outpatient Jameel GEIGER [facility] [id number] Univers 14:30:00 14:30:00 [facility] 2020-12-20 2020-12-20 [facility] [id number] Univers 11:27:15 12:12:58 Visit Tc SPECIALTY [id number] ity of CARE 4.2.7.2.686 [facility] AT [id number] Vt ta CANO 198 [facility] 2020-12-20 2020-12-20 Outpatient Jameel GEIGER [facility] [id number] Univers 11:20:00 11:20:00 TC ity [facility] 2020-12-13 2020-12-13 Outpatient Jameel GEIGER [facility] [id number] Univers 08:40:00 08:40:00 TC ity [facility] 2020-12-05 2020-12-05 Outpatient Jameel GEIGER [facility] [id number] Univers 15:35:00 15:35:00 [facility] 2020-11-27 2020-11-27 [facility] [id number] Univers 13:36:23 23:59:00 Encounter Cristina SPECIALTY [id number] ity of [place] [id number] Vt ta CANO 807 [facility] 2020-11-27 2020-11-27 Bioinformatics Developer Vls-Lab [facility] [id number] Univers 13:09:22 13:24:22 Visit Varghese Vaca SPECIALTY 350.1.13. 10 ity of Juan J, Cristina Joanie CARE [id number] [facility] AT [id number] Vt ta CANO 353 [facility] 2020-11-27 2020-11-27 Office Dale Vaca [facility] 1.2.840.1 [id number] Univers 11:33:29 12:35:01 Visit Varghese Vaca MULTISPEC 350.1.13. 10 ity of Juan J, Cristina Joanie IALTY 4.2.7.2.686 [facility] [id number] [address] DIABETES CLINIC 2020-11-27 2020-11-27 Outpatient R JUAN J [facility] [id number] Univers 11:30:00 11:30:00 CRISTINA [facility] 2020-11-22 2020-11-22 Outpatient R JORDIN [facility] [id number] Univers 13:40:00 13:40:00 DILLON [facility] 2020-11-22 2020-11-22 [facility] 1.2.840.114 [id number] Univers 00:00:00 00:00:00 Dillon Hood MULTISPEC 350.1.13.10 ity of [place] [id number] [address] [facility]ETES [facility]INIC 2020-06-22 2020-06-22 Orders Doctor MERCER 1.2.840.114 [id number] Univers 00:00:00 00:00:00 Only Unassigned, CARMELITA 350.1.13.10 ity of [place] [facility] 4.2.7.2.686 Yassine as [id number] [place] [id number] Branch 2020-01-23 2020-01-25 Emergency Tristan Cleaning [facility] 1.2.840. 114 [id number] Univers 21:17:00 13:48:00 Joanna Valadezton [facility].1.13.10 [facility] 4.2.7.2.686 [facility] [id number] [facility] 080 Branch 2020-01-23 2020-01-23 Emergency X [facility] ERT [id number] Univers 21:09:00 21:09:00 ity [facility] 2019-05-24 2019-05-24 Outpatient Jerman, [facility] [id number] [facility] 16:03:00 16:03:00 Juarez 16 [facility] [place] [facility] 2017-11-20 2017-11-20 Outpatient [facility] [id number] Common 08:00:00 08:00:00 t [facility] Results Test Description Test Time Test Comments Results Result Comments Source N-TERMINAL PRO-BNP 2021-09-03 04:26:55 Test Item Value Reference Range Interpretation Comme nts NT-proBNP (test code = 105 pg/mL See_Comment [Aut omated message] The [id number]) system which ge nerated this result tra nsmitted reference range : <=125. The reference r pradeep was not used to int erpret this result as kristal l/abnormal. MANDY (test code = MANDY) Biotin has been reported to cause a negative bias, interpret results relative to patient's use of biotin. Lab Interpretation (test Normal code = 04401-1) [facility] [place] [facility] [id number] 04:26:24 Test Item Value Reference Range Interpretation Comments ESR (test code = See_Comment [Automated message] [id number]) The system whic h generated this result transmitted ref erence range: 0 - 20 m m/HR. The reference r pradeep was not used to interpret this result as normal/abnor mal. Lab Interpretation (test Normal code = 80150-2) [facility] [place] [facility] System[facility]. METABOLIC PANEL (14684)2021-09-03 04:18:53 Test Item Value Reference Range Interpretation Comments NA (test code = 139 mmol/L 135-145 1445846846) K (test code = 3.8 mmol/L 3.5-5.0 3838985803) CL (test code = 106 mmol/L 98-108 8016192155) CO2 TOTAL (test code = 22 mmol/L 23-31 L 5867120282) AGAP (test code = 2-16 5851156360) BUN (test code = 13 mg/dL 7-23 4664142716) GLUCOSE (test code = 106 mg/dL 70-110 1613213451) CREATININE (test code = 0.77 mg/dL 0.50-1.04 0960605059) TOTAL BILI (test code = 0.6 mg/dL 0.1-1.2 4996732607) CALCIUM (test code = 9.5 mg/dL 8.6-10.6 2038179955) T PROTEIN (test code = 7.2 g/dL 6.3-8.2 2868395459) ALBUMIN (test code = 4.6 g/dL 3.5-5.0 9615139978) ALK PHOS (test code = 110 U/L 34-122 6168791068) ALTv (test code = 15 U/L 5-35 1742-6) AST(SGOT) (test code = 20 U/L 13-40 7832909358) eGFR (test code = mL/min/1.73m2 6688899352) MANDY (test code = MANDY) Association of [...] tests). Lab Interpretation Abnormal (test code = 55435-6) [facility] WITH [id number] 04:01:51 Test Item Value Reference Range Interpretation Comments WBC (test code = See_Comment [Automated 0943-2) message] The sy stem which generated this result transmitted reference range : 4.30 - 11.10 10*3/?L. The reference range was not used to interpret this result as normal/abnormal . RBC (test code = See_Comment [Automated 239-8) message] The sy stem which generated this [...] RDW-SD (test code = 45.3 fL 39.0-49.9 55543-9) RDW-CV (test code = 14.6 % 12.0-15.5 788-0) PLT (test code = See_Comment [Automated 777-3) message] The sy stem which generated this result transmitted reference range : 166 - 358 10*3/ ?L. The reference r pradeep was not used to interpret this result as normal/abnormal . MPV (test code = 10.2 fL 9.5-12.9 13578-7) NRBC/100 WBC (test See_Comment [Automat ed code = 7035264195) message] The system which generated this result transmitted reference range : 0.0 - 10.0 /100 WBCs. The refer ence range was not u sed to interpret th is result as normal/abnormal . NRBC x10^3 (test code <0.01 See_Comment [Auto mated = 0336710120) message] The s ystem which generated this result transmitted reference range : 10*3/?L. The reference range was not used to interpret this result as normal/abnormal . GRAN MAT (NEUT) % 58.2 % (test code = 770-8) IMM GRAN % (test code 0.40 % = 8679550062) LYMPH % (test code = 33.8 % 736-9) MONO % (test code = 5.6 % 5905-5) EOS % (test code = 1.2 % 713-8) BASO % (test code = 0.8 % 706-2) GRAN MAT x10^3(ANC) 6.19 10*3/uL 1.88-7.09 (test code = 8358795268) IMM GRAN x10^3 (test 0.04 10*3/uL 0.00-0.06 code = 3861954436) LYMPH x10^3 (test code 3.60 10*3/uL 1.32-3.29 H = 731-0) MONO x10^3 (test code 0.60 10*3/uL 0.33-0.92 = 742-7) EOS x10^3 (test code = 0.13 10*3/uL 0.03-0.39 711-2) BASO x10^3 (test code 0.08 10*3/uL 0.01-0.07 H = 704-7) Lab Interpretation Abnormal (test code = 42188-5) [facility] [place] [facility]- DUP VEIN UNI/[id number] 18:38:00 Patient Name: CAPRICE ARGUETA Unit No: [id number] EXAMS: CPT CODE: [id number] DUP VEIN UNI/LTD 77463 FINDINGS: Left lower extremity grayscale and Doppler venous ultrasound demonstrates normal flow and luminal compressibility without evidence of intraluminal thrombus. IMPRESSION: No evidence of DVT within deep venous structures of the left lower extremity. at 1838 Reported and signed by: Eusebio Kirkpatrick M.D. CC: Juarez Stoll MD Technologist: MORGAN ANDERSEN RDMS, RVT Transcribed D/ (183) Alva [facility] Orthopedic NAME: CAPRICE ARGUETA [address] [facility] PHYS: Juarez Bowen : 1980 AGE: 37 SEX: F [place] [address] LOC: Y.RAD PHONE #: [phone] EXAM DATE: 07/14/2018 STATUS: REG CLI FAX #: [phone] RAD #: D/C DT PAGE 1 Signed Report Patient Name: CAPRICE ARGUETA Unit No: [id number] EXAMS: CPT CODE: [id number] DUP VEIN UNI/LTD 21728 (Continued) Orig Print D/T: S: 07/14/2018 (1841) [facility] Orthopedic NAME: CAPRICE ARGUETA [address] [facility] PHYS: Juarez Bowen : 1980 AGE: 37 SEX: F [place] [address] LOC: Y.RAD PHONE #: [phone] EXAM DATE: 07/14/2018 STATUS: REG CLI FAX #: [phone] RAD #: D/C DT PAGE 2 Signed Report"
[2022-03-06] MEDS ORDERED: DICYCLOMINE HCL 10 MG CAP ONE (13:46)
[2022-03-06] MEDS ORDERED: NA CHLORIDE 0.9% 1,000 ML ONE (13:46)
[2022-03-06] MEDS ORDERED: FAMOTIDINE 20 MG/2 ML VIAL IV ONE (13:46)
[2022-03-06 13:51] LABS: Absolute Lymphocytes (CBC) 2.8 K/uL (0.7-4.9); Lymphocytes % 31.8 % (15.3-44.8); MCV 84.1 fL (80-100); MPV 8.1 fL (7.6-11.3); RBC Red Blood Cell Count 4.87 M/uL (3.86-4.86)
--- NOTE | 2022-03-06 14:49 | RAD REPORT ---
EXAM DESCRIPTION: US - Abdomen Exam Limited - 03/06/2022 2:25 pm CLINICAL HISTORY: ABD PAIN COMPARISON: Abdomen Pelvis W Contrast dated 01/06/2019 FINDINGS: Cholecystectomy. No biliary ductal dilatation. The common bile duct measures 4 millimeters . Grossly unremarkable appearance of the liver. IMPRESSION: Cholecystectomy. No biliary ductal dilatation.
--- NOTE | 2022-03-06 15:03 | RAD REPORT ---
EXAM DESCRIPTION: CTAbdomen Pelvis W Contrast - 03/06/2022 2:47 pm CLINICAL HISTORY: left upper quad pain COMPARISON: Abdomen Pelvis W Contrast dated 01/06/2019; Abdomen Pelvis W Contrast dated 7; Abdomen Pelvis W Contrast dated 12/10/2015; CT ABD PELVIS W CONTRAST dated 04/24/2014 TECHNIQUE: CT of the abdomen and pelvis was performed. All CT scans are performed using dose optimization technique as appropriate and may include automated exposure control or mA/KV adjustment according to patient size. FINDINGS: Lower chest: No acute abnormality. Liver: Benign low-density lesion in the left hepatic lobe. Biliary: Cholecystectomy Stomach: No significant focal abnormality. Duodenum: No significant focal abnormality. Pancreas: No significant abnormality. Spleen: No significant abnormality. Adrenal: No suspicious lesions. Kidney/ureter: No hydronephrosis. No renal calculi. Retroperitoneum: No retroperitoneal adenopathy. Vascular: No aneurysm. Bowel: Appendectomy. No bowel obstruction.. Peritoneum: No ascites or free air. Prior ventral hernia repair. No recurrent hernia identified. Bladder: Grossly unremarkable. Reproductive: No adnexal masses. Hysterectomy Bones: No acute fracture. Other: n/a IMPRESSION: No acute intra-abdominal or pelvic finding. Incidental findings as noted above.
[2022-03-06 15:08] LABS: Albumin 3.5 g/dL (3.4-5.0); Bilirubin Total 0.5 mg/dL (0.2-1.0); Potassium 3.6 mmol/L (3.5-5.1); Protein, Total 6.9 g/dL (6.4-8.2)
--- NOTE | 2022-03-06 15:17 | EDPHYS ---
Physician Documentation [facility] Name: Yuly Julien Age: 41 yrs Sex: Female : 1980 Arrival Date: 03/06/2022 Time: 13:12 Bed 16 Private MD: ED Physician Davon Lo HPI: 03/06 15:01 This 41 yrs old Female presents to ER via Ambulatory with complaints of Abdominal Pain, snw Back Pain. 15:01 The patient presents with abdominal pain in the left upper quadrant. Onset: The snw symptoms/episode began/occurred gradually, 4 month(s) ago. 15:02 The symptoms radiate to left back. Associated signs and symptoms: Pertinent positives: snw anorexia, nausea. The symptoms are described as burning, sharp. Severity of pain: At its worst the pain was moderate severe. The patient has experienced similar episodes in the past, chronically. 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 - Social history:: Smoking status: Patient denies any tobacco usage or history of. ROS: 15:01 Constitutional: Negative for fever, chills, and weight loss, Eyes: Negative for injury, snw pain, redness, and discharge, ENT: Negative for injury, pain, and discharge, Neck: Negative for injury, pain, and swelling, Cardiovascular: Negative for chest pain, palpitations, and edema, Respiratory: Negative for shortness of breath, cough, wheezing, and pleuritic chest pain, Back: Negative for injury and pain, : Negative for injury, bleeding, discharge, and swelling, MS/Extremity: Negative for injury and deformity, Skin: Negative for injury, rash, and discoloration, Neuro: Negative for headache, weakness, numbness, tingling, and seizure. 15:01 Abdomen/GI: Positive for abdominal pain, of the posterior aspect of left lateral abdomen and left upper quadrant. Exam: 15:00 Constitutional: This is a well developed, well nourished patient who is awake, alert, snw and in no acute distress. Head/Face: Normocephalic, atraumatic. Eyes: Pupils equal round and reactive to light, extra-ocular motions intact. Lids and lashes normal. Conjunctiva and sclera are non-icteric and not injected. Cornea within normal limits. Periorbital areas with no swelling, redness, or edema. ENT: Nares patent. No nasal discharge, no septal abnormalities noted. Tympanic membranes are normal and external auditory canals are clear. Oropharynx with no redness, swelling, or masses, exudates, or evidence of obstruction, uvula midline. Mucous membranes moist. Neck: Trachea midline, no thyromegaly or masses palpated, and no cervical lymphadenopathy. Supple, full range of motion without nuchal rigidity, or vertebral point tenderness. No Meningismus. Chest/axilla: Normal chest wall appearance and motion. Nontender with no deformity. No lesions are appreciated. Cardiovascular: Regular rate and rhythm with a normal S1 and S2. No gallops, murmurs, or rubs. Normal PMI, no JVD. No pulse deficits. Respiratory: Lungs have equal breath sounds bilaterally, clear to auscultation and percussion. No rales, rhonchi or wheezes noted. No increased work of breathing, no retractions or nasal flaring. Back: No spinal tenderness. No costovertebral tenderness. Full range of motion. Skin: Warm, dry with normal turgor. Normal color with no rashes, no lesions, and no evidence of cellulitis. MS/ Extremity: Pulses equal, no cyanosis. Neurovascular intact. Full, normal range of motion. Neuro: Awake and alert, GCS 15, oriented to person, place, time, and situation. Cranial nerves II-XII grossly intact. Motor strength 5/5 in all extremities. Sensory grossly intact. Cerebellar exam normal. Normal gait. Psych: Awake, alert, with orientation to person, place and time. Behavior, mood, and affect are within normal limits. 15:00 Abdomen/GI: Inspection: abdomen appears normal, obese Bowel sounds: normal, Palpation: moderate abdominal tenderness, in the posterior aspect of left lateral abdomen and left upper quadrant. Vital Signs: 13:20 BP 148 / 72; Pulse 98; Resp 18; Temp 98.6; Pulse Ox 99% ; Weight 123.38 kg; Height 5 [facility] ft. 10 in. (177.80 cm); Pain 10/10; 13:35 BP 142 / 76; Pulse 92; Pulse Ox 99% on R/A; ko1 15:00 BP 155 / 84; Pulse 95; Pulse Ox 98% on R/A; ko1 15:55 BP 148 / 82; Pulse 96; Pulse Ox 97% on R/A; ko1 13:20 Body Mass Index 39.03 (123.38 kg, 177.80 cm) [facility] MDM: 13:23 Patient medically screened. snw 15:19 Data reviewed: vital signs, nurses notes. Data interpreted: Pulse oximetry: on room air snw is 99 %. Interpretation: normal. Counseling: I had a detailed discussion with the patient and/or guardian regarding: the historical points, exam findings, and any diagnostic results supporting the discharge/admit diagnosis, the presence of at least one elevated blood pressure reading (>120/80) during this emergency department visit, lab results, radiology results, the need for outpatient follow up, to return to the emergency department if symptoms worsen or persist or if there are any questions or concerns that arise at home. Special discussion: Based on the patient's Hx, exam, and Dx evaluation, there is no indication for emergent surgery or inpatient Tx. It is understood by the patient/guardian that if the Sx's persist or worsen they need to return immediately for re-evaluation. Based on the history and exam findings, there is no indication for further emergent testing or inpatient evaluation. 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 03/06 13:28 Order name: CBC with Diff; Complete Time: 13:56 snw 03/06 13:28 Order name: CMP; Complete Time: 15:16 snw 03/06 13:28 Order name: Lipase; Complete Time: 15:16 snw 03/06 13:28 Order name: CT Abd/Pelvis - IV Contrast Only; Complete Time: 15:07 snw 03/06 13:29 Order name: US Abdomen Limited; Complete Time: 14:54 snw 03/06 13:29 Order name: IV Saline Lock; Complete Time: 13:59 snw 03/06 13:29 Order name: Labs collected and sent; Complete Time: 13:59 snw 03/06 13:29 Order name: Urine Dipstick-Ancillary (obtain specimen) snw 03/06 13:29 Order name: Urine Test (obtain specimen) snw Administered Medications: 13:59 Drug: NS 0.9% 1000 ml Route: IV; Rate: 1 bolus; Site: left antecubital; jd3 13:59 Drug: Pepcid (famotidine) 20 mg Route: IVP; Site: left antecubital; jd3 13:59 Drug: Dicyclomine 20 mg Route: PO; jd3 Disposition: 17:17 Co-signature as Attending Physician, Davon Lo MD. rn Disposition Summary: 03/06/22 15:17 Discharge Ordered Location: Home snw Condition: Stable snw Diagnosis - Upper abdominal pain, unspecified snw Followup: snw - With: Abdoul Boles MD - When: 1 - 2 days - Reason: Recheck today's complaints, Continuance of care, Re-evaluation by your physician Discharge Instructions: - Discharge Summary Sheet snw - Abdominal Pain, Adult snw - Biliary Colic, Adult snw - Fat and Cholesterol Restricted Eating Plan snw - Rehydration, Adult snw Forms: - Medication Reconciliation Form snw - Thank You Letter snw - Antibiotic Education snw - Prescription Opioid Use snw Prescriptions: - Gas-X - take 240 milligram by ORAL route 3-4 times daily; 30 capsule; Refills: 0, snw Product Selection Permitted - dicyclomine 20 mg Oral Tablet - take 1 tablet by ORAL route 3 times per day; 30 tablet; Refills: 0, Product snw Selection Permitted Signatures: Dispatcher [employer] Yuly Prescott FNP-[place] [employer]-Csnw Davon Lo MD MD rn Niko De Los Santos RN RN jd3 Tara Cordon RN RN jh5
--- NOTE | 2022-03-06 15:17 | ER ---
Nurse's Notes [facility] Name: Yuly Julien Age: 41 yrs Sex: Female : 1980 Arrival Date: 03/06/2022 Time: 13:12 Bed 16 Private MD: Diagnosis: Upper abdominal pain, unspecified Presentation: 03/06 13:20 Chief complaint: Patient states: abdominal pain x3 weeks getting worse; seeing dr cash 5 and back pain x2 weeks getting worse. Coronavirus screen: Vaccine status: Patient reports being unvaccinated. Client denies travel out of the [place] in the last 14 days. Ebola Screen: Patient negative for fever greater than or equal to 101.5 degrees Fahrenheit, and additional compatible Ebola Virus Disease symptoms Patient denies exposure to infectious person. Patient denies travel to an Ebola-affected area in the 21 days before illness onset. Initial Sepsis Screen: Does the patient meet any 2 criteria? No. Patient's initial sepsis screen is negative. Does the patient have a suspected source of infection? No. Patient's initial sepsis screen is negative. Risk Assessment: Do you want to hurt yourself or someone else? Patient reports no desire to harm self or others. 13:20 Method Of Arrival: Ambulatory [facility] 13:20 Acuity: GRACIA 3 jh5 Triage Assessment: 13:22 General: Appears uncomfortable, obese, well groomed, well developed, Behavior is calm, jh5 cooperative, appropriate for age. Pain: Complains of pain in back and abdomen. GI: Reports lower abdominal pain, upper abdominal pain, Pain is 10 out of 10 on a pain scale. 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 - Social history:: Smoking status: Patient denies any tobacco usage or history of. Screenin:35 Abuse screen: Denies threats or abuse. Denies injuries from another. Nutritional ko1 screening: No deficits noted. Tuberculosis screening: No symptoms or risk factors identified. Fall Risk None identified. Assessment: 13:35 General: Appears in no apparent distress. uncomfortable, Behavior is calm, cooperative, ko1 appropriate for age. Neuro: No deficits noted. Cardiovascular: No deficits noted. Respiratory: No deficits noted. GI: Bowel sounds present X 4 quads. Abd is soft X 4 quads Abdomen is tender to palpation X 4 quads. : No deficits noted. EENT: No deficits noted. Derm: No deficits noted. Musculoskeletal: No deficits noted. Vital Signs: 13:20 BP 148 / 72; Pulse 98; Resp 18; Temp 98.6; Pulse Ox 99% ; Weight 123.38 kg; Height 5 [facility] ft. 10 in. (177.80 cm); Pain 10/10; 13:35 BP 142 / 76; Pulse 92; Pulse Ox 99% on R/A; ko1 15:00 BP 155 / 84; Pulse 95; Pulse Ox 98% on R/A; ko1 15:55 BP 148 / 82; Pulse 96; Pulse Ox 97% on R/A; ko1 13:20 Body Mass Index 39.03 (123.38 kg, 177.80 cm) [facility] ED Course: 13:12 Patient arrived in ED. rg4 13:20 [facility] Mondragon [facility] snw 13:20 Davon Lo MD is Attending Physician. snw 13:22 Triage completed. [facility] 13:22 Arm band placed on right wrist. [facility] 13:26 Anisa Hoyt, RN is Primary Nurse. ko1 13:35 Patient has correct armband on for positive identification. Bed in low position. Call ko1 light in reach. Side rails up X 1. 13:35 Inserted saline lock: 20 gauge in left antecubital area, using aseptic technique. Blood ko1 collected. 14:27 US Abdomen Limited In Process Unspecified. EDMS 14:50 CT Abd/Pelvis - IV Contrast Only In Process Unspecified. EDMS 15:16 Abdoul Boles MD is Referral Physician. snw 15:58 No provider procedures requiring assistance completed. IV discontinued, intact, ko1 bleeding controlled, No redness/swelling at site. Pressure dressing applied. Administered Medications: 13:59 Drug: NS 0.9% 1000 ml Route: IV; Rate: 1 bolus; Site: left antecubital; jd3 13:59 Drug: Pepcid (famotidine) 20 mg Route: IVP; Site: left antecubital; jd3 13:59 Drug: Dicyclomine 20 mg Route: PO; jd3 Medication: 15:58 VIS not applicable for this client. ko1 Outcome: 15:17 Discharge ordered by MD. bo 15:58 Discharged to home ambulatory. ko1 15:58 Condition: stable 15:58 Discharge instructions given to patient, Instructed on discharge instructions, follow up and referral plans. medication usage, Demonstrated understanding of instructions, medications, Prescriptions given X 2. 16:00 Patient left the ED. ko1 Signatures: Dispatcher [employer] EDMS Yuly Mondragon, MACHINE IRONER-C MACHINE IRONER-Csnw Colleen Dumont rg4 Niko De Los Santos RN RN jd3 Tara Cordon RN RN jh5 Anisa Hoyt RN RN ko1 Corrections: (The following items were deleted from the chart) 16:03 16:02 BP 148 / 82; Pulse 96bpm; Pulse Ox 97% RA; ko1 ko1
[2022-03-06 16:09] VITALS: TEMP 98.6; O2SAT 99
[2022-03-06 16:10] VITALS: BP 142/76
== END 2022-03-06 16:00 | disposition home or self-care (01) ==
LOC: ER 13:07
DX: R10.12 Left upper quadrant pain (principal); I10 Essential (primary) hypertension; Z88.0 Allergy status to penicillin; Z88.5 Allergy status to narcotic agent; Z91.048 Other nonmedicinal substance allergy status
CPT/HCPCS: 85025; 36415; 82565; 83690; 80053; 74177; 76705; 96374; 99284; Q9967; J7030